=== PATIENT | male | born 1985 | race Caucasian/White ===

== ENCOUNTER 2021-09-18 09:28 | Observation (INO) | payer OTHER ==
[2021-09-18 09:45] VITALS: BMI 31.9
[2021-09-18] MEDS ORDERED: ACETAMINOPHEN 1000 MG/100 ML VIAL IVPB ONE (10:10)
[2021-09-18] MEDS ORDERED: ACETAMINOPHEN INJECTION 100 ML IVPB ONE (10:25)
[2021-09-18] MEDS ORDERED: oxyCODONE HCL 5 MG TABLET PO ONE ×3 (10:36→21:29)
[2021-09-18] MEDS ORDERED: oxyCODONE HCL 5 MG TABLET ONE ×3 (10:39→21:34)
[2021-09-18 11:03] LABS: BASO % 0.3 % (0-2.0); EOS % 0.4 % (0-4.5); HEMATOCRIT 42.1 % (35.4-49); HEMOGLOBIN 14.7 GM/dL (11.7-16.9); LYMPH % 19.1 % (8-40); MCH 30.6 pg (25.7-33.7); MEAN CELL VOLUME 87.4 fl (80-96); MEAN PLT VOLUME 8.5 fl (7.5-11.1); MONO % 9.2 % (3.8-10.2); PLATELET COUNT 226 10^3/uL (134-434); RBC 4.81 M/mm3 (4.00-5.60); RDW 13.8 % (11.9-15.9); WHITE BLOOD COUNT 6.8 K/mm3 (4.0-10.0)
[2021-09-18 11:21] LABS: CALCIUM 9.6 mg/dL (8.5-10.1)
[2021-09-18 11:22] LABS: ALBUMIN 4.1 g/dl (3.4-5.0); BLOOD UREA NITROGEN 3.9 mg/dL (7-18); MAGNESIUM 2.4 mg/dL (1.8-2.4)
[2021-09-18 11:25] LABS: CREATININE 0.8 mg/dL (0.55-1.3)
[2021-09-18 11:27] LABS: BILIRUBIN,TOTAL 0.9 mg/dL (0.2-1); TOT PROT 7.7 g/dl (6.4-8.2)
[2021-09-18 13:11] LABS: EPI CELLS >36 /uL (0-25.1); HYALINE CASTS 0 /uL (0-3.1); URINE APPEARANCE CLEAR; URINE BACTERIA 3432 /uL (0-1359); URINE BILIRUBIN NEGATIVE (NEGATIVE); URINE COLOR YELLOW; URINE GLUCOSE (UA) NEGATIVE (NEGATIVE); URINE KETONE TRACE (NEGATIVE); URINE LEUK ESTERASE 3+ (NEGATIVE); URINE NITRITE POSITIVE (NEGATIVE); URINE PROTEIN 2+ (NEGATIVE); URINE RBC 4 /uL (0-23.9); URINE WBC 98 /uL (0-25.8)
[2021-09-18] MEDS ORDERED: morphine CARPU-JECT 4 MG/1 ML DISP.SYRIN IVPUSH ONE (13:22)
[2021-09-18] MEDS ORDERED: morphine SULFATE 4 MG/ML VIAL ONE (14:20)
[2021-09-18] MEDS ORDERED: morphine SULFATE IMMEDIATE RELEASE 30 MG TAB PO ONE (21:30)
[2021-09-18] MEDS ORDERED: SULFAMETHOXAZOLE/TRIMETHOPRIM 800MG/160MG D.S. TABLET PO ONE (21:30)
[2021-09-18] MEDS ORDERED: SULFAMETHOXAZOLE/TRIMETHOPRIM 800MG/160MG D.S. TABLET ONE (21:34)
[2021-09-18] MEDS ORDERED: morphine SO4 SUSTAINED ACTING 30 MG TABLET.SA PO ONE (21:44)
[2021-09-19] MEDS ORDERED: APIXABAN 5 MG TABLET ONE ×2 (00:28→08:53)
[2021-09-19] MEDS ORDERED: GABAPENTIN 100 MG CAPSULE ONE ×4 (00:28→08:55)
[2021-09-19] MEDS: GABAPENTIN 300 MG CAPSULE PO SCH ×2 (00:45→09:19)
[2021-09-19] MEDS: APIXABAN 5 MG TABLET PO SCH ×2 (00:45→09:19)
[2021-09-19] MEDS ORDERED: oxyCODONE HCL 5 MG TABLET ONE (02:03)
[2021-09-19] MEDS ORDERED: BACLOFEN 10 MG TABLET (FP) ONE ×2 (02:03→08:54)
[2021-09-19] MEDS: BACLOFEN 10 MG TABLET (FP) PO SCH ×2 (02:08→09:19)
[2021-09-19] MEDS ORDERED: oxyCODONE HCL 5 MG TABLET PO ONE (02:15)
[2021-09-19] MEDS ORDERED: oxyCODONE HCL 5 MG TABLET PO PRN ×2 (06:47→11:22)
[2021-09-19] MEDS ORDERED: morphine SULFATE IMMEDIATE RELEASE 30 MG TAB PO PRN (06:48)
[2021-09-19] MEDS ORDERED: morphine SO4 SUSTAINED ACTING 30 MG TABLET.SA PO ONE (06:49)
[2021-09-19 08:00] LABS: BASO % 0.4 % (0-2.0); EOS % 1.5 % (0-4.5); HEMOGLOBIN 13.5 GM/dL (11.7-16.9); LYMPH % 21.7 % (8-40); MCH 30.6 pg (25.7-33.7); MCHC 34.7 g/dl (32.0-35.9); MEAN CELL VOLUME 88.3 fl (80-96); MEAN PLT VOLUME 8.3 fl (7.5-11.1); MONO % 10.9 % (3.8-10.2); NEUT % 65.5 % (42.8-82.8); PLATELET COUNT 207 10^3/uL (134-434); RBC 4.41 M/mm3 (4.00-5.60); RDW 14.1 % (11.9-15.9); WHITE BLOOD COUNT 6.8 K/mm3 (4.0-10.0)
[2021-09-19] MEDS ORDERED: SULFAMETHOXAZOLE/TRIMETHOPRIM 800MG/160MG D.S. TABLET ONE (08:53)
[2021-09-19] MEDS ORDERED: SULFAMETHOXAZOLE/TRIMETHOPRIM 800MG/160MG D.S. TABLET PO SCH (10:00)
[2021-09-19 10:59] VITALS: BP 100/76; PULSE 84; TEMP 99.5
[2021-09-19] MEDS ORDERED: ACETAMINOPHEN 1000 MG/100 ML VIAL IVPB PRN (11:12)
[2021-09-19] MEDS ORDERED: clonazePAM 0.5 MG TABLET PO ONE (11:20)
== END 2021-09-19 11:15 | disposition home or self-care (01) ==
LOC: JER 09:28 → JERBED 21:28
PROVIDERS: ADMIT Internal Medicine; ATTEND Family Medicine
PROC: 3E033NZ Introduction of Analgesics, Hypnotics, Sedatives into Peripheral Vein, Percutaneous Approach (ICD-10-PCS; principal; 2021-09-18)
DX: N30.00 Acute cystitis without hematuria (principal); T14.8XXS Other injury of unspecified body region, sequela; G82.20 Paraplegia, unspecified; R10.9 Unspecified abdominal pain; G89.29 Other chronic pain; I74.8 Embolism and thrombosis of other arteries; Z79.01 Long term (current) use of anticoagulants; W34.00XA Accidental discharge from unspecified firearms or gun, initial encounter; Y93.9 Activity, unspecified; Y92.9 Unspecified place or not applicable
CPT/HCPCS: 36415; 74177-TC; 80053; 81003; 82962; 83735; 85025; 87086; 87186; 93005; 93010; 96374; 96375; 99285-25; C9803; G0378; J0131; J0475; Q9967; U0003; U0005

== ENCOUNTER 2022-06-12 13:05 | Inpatient (IN) | payer OTHER ==
[2022-06-12 16:04] VITALS: BMI 30.2
[2022-06-12] MEDS ORDERED: ONDANSETRON *ODT* 4 MG TABLET SL PRN (16:36)
[2022-06-12] MEDS ORDERED: IBUPROFEN 400 MG TABLET (FP) PO PRN (16:36)
[2022-06-12] MEDS ORDERED: ACETAMINOPHEN 325 MG TABLET (FP) PO PRN ×2 (16:36)
[2022-06-12] MEDS ORDERED: BENZOCAINE/MENTHOL (CHLORASEPTIC ) LOZENGE MM PRN (16:36)
[2022-06-12] MEDS ORDERED: MAG HYDROX/AL HYDROX/SIMETH 30 ML UNIT-DOSE CUP PO PRN (16:36)
[2022-06-12] MEDS ORDERED: IBUPROFEN 600 MG TABLET (FP) PO PRN (16:36)
[2022-06-12] MEDS ORDERED: LOPERAMIDE HCL 2 MG CAPSULE PO PRN (16:36)
[2022-06-12] MEDS ORDERED: MAGNESIUM CITRATE 300 ML BOTTLE PO PRN (16:36)
[2022-06-12] MEDS ORDERED: NALOXONE HCL 0.4 MG/ML VIAL IM PRN (16:36)
[2022-06-12] MEDS ORDERED: MAGNESIUM HYDROX 2400MG/30ML ORAL SUSPENSION 30 ML CUP PO PRN (16:36)
[2022-06-12] MEDS ORDERED: BISMUTH SUBSALICYLATE 524 MG/30 ML PO PRN (16:36)
[2022-06-12] MEDS ORDERED: METHOCARBAMOL 500 MG TABLET PO PRN (16:36)
[2022-06-12] MEDS ORDERED: DICYCLOMINE HCL 10 MG CAPSULE PO PRN (16:36)
[2022-06-12] MEDS: hydrOXYzine PAMOATE 25 MG CAPSULE (FP) PO SCH ×2 (19:15→22:03)
[2022-06-12] MEDS ORDERED: THIAMINE HCL 100 MG TABLET (FP) PO SCH (22:00)
[2022-06-12] MEDS ORDERED: MELATONIN 5 MG TABLETS PO SCH (22:00)
[2022-06-12] MEDS ORDERED: methaDONE HCL 10 MG TABLET PO ONE (23:49)
[2022-06-12] MEDS ORDERED: hydrOXYzine PAMOATE 25 MG CAPSULE (FP) PO PRN (23:51)
[2022-06-13 03:13] VITALS: BP 117/68; PULSE 58; TEMP 97.7
[2022-06-13] MEDS ORDERED: PRENATAL VITAMINS W/ FOLIC ACID TABLET (FP) PO SCH (10:00)
== END 2022-06-13 02:26 | disposition short-term general hospital (02) | DRG 773 ==
LOC: YASAS 13:05 → Y6N 17:43
PROVIDERS: ADMIT Allergy & Immunology; ATTEND Surgery
PROC: HZ2ZZZZ Detoxification Services for Substance Abuse Treatment (ICD-10-PCS; principal; 2022-06-12)
DX: F11.23 Opioid dependence with withdrawal (principal); F41.9 Anxiety disorder, unspecified; G82.20 Paraplegia, unspecified; T14.8XXS Other injury of unspecified body region, sequela; W34.00XS Accidental discharge from unspecified firearms or gun, sequela; M54.50 Low back pain, unspecified; G89.29 Other chronic pain; Z86.718 Personal history of other venous thrombosis and embolism; Z79.01 Long term (current) use of anticoagulants; Z91.14 Patient's other noncompliance with medication regimen; Z28.310 Unvaccinated for COVID-19
CPT/HCPCS: 93005; 93010; C9803-CS; U0003; U0005

== ENCOUNTER 2022-06-13 02:42 | Observation (INO) | payer OTHER ==
[2022-06-13 08:41] LABS: BASO % 0.3 % (0-2.0); EOS % 3.8 % (0-4.5); HEMATOCRIT 37.1 % (35.4-49); LYMPH % 21.5 % (8-40); MCH 30.9 pg (25.7-33.7); MCHC 35.1 g/dl (32.0-35.9); MEAN CELL VOLUME 87.9 fl (80-96); MEAN PLT VOLUME 8.1 fl (7.5-11.1); NEUT % 65.4 % (42.8-82.8); PLATELET COUNT 231 10^3/uL (134-434); RBC 4.22 M/mm3 (4.00-5.60); RDW 13.9 % (11.9-15.9); WHITE BLOOD COUNT 5.2 K/mm3 (4.0-10.0)
[2022-06-13 09:05] LABS: ALBUMIN 3.7 g/dl (3.4-5.0); CALCIUM 8.9 mg/dL (8.5-10.1)
[2022-06-13 09:06] LABS: BLOOD UREA NITROGEN 6.5 mg/dL (7-18)
[2022-06-13 09:08] LABS: CREATININE 0.6 mg/dL (0.55-1.3)
[2022-06-13 09:11] LABS: BILIRUBIN,TOTAL 0.6 mg/dL (0.2-1); TOT PROT 6.9 g/dl (6.4-8.2)
[2022-06-13] MEDS ORDERED: cloNIDine HCL 0.1 MG TABLET PO PRN (10:23)
[2022-06-13] MEDS ORDERED: APIXABAN 5 MG TABLET ONE (10:35)
[2022-06-13] MEDS ORDERED: FOLIC ACID 1 MG TABLET (FP) ONE (10:35)
[2022-06-13] MEDS ORDERED: methaDONE HCL 10 MG TABLET ONE (10:35)
[2022-06-13] MEDS ORDERED: BACLOFEN 10 MG TABLET (FP) ONE (10:35)
[2022-06-13] MEDS: FOLIC ACID 1 MG TABLET (FP) PO SCH (10:40)
[2022-06-13] MEDS: methaDONE HCL 10 MG TABLET (FOR DETOX USE ONLY) PO ONE ×2 (10:40→15:54)
[2022-06-13] MEDS: APIXABAN 5 MG TABLET PO SCH ×2 (10:40→21:25)
[2022-06-13] MEDS ORDERED: MAG HYDROX/AL HYDROX/SIMETH 30 ML UNIT-DOSE CUP PO PRN (10:42)
[2022-06-13] MEDS ORDERED: methaDONE HCL 10 MG TABLET PO ONE (10:45)
[2022-06-13] MEDS ORDERED: BACLOFEN 10 MG TABLET (FP) PO PRN (10:52)
[2022-06-13] MEDS ORDERED: BACLOFEN 10 MG TABLET (FP) PO SCH (11:00)
[2022-06-13] MEDS ORDERED: POLYETHYLENE GLYCOL 3350 119 GM BTL PO SCH (11:00)
[2022-06-13] MEDS: GABAPENTIN 300 MG CAPSULE PO SCH ×2 (13:12→21:25)
[2022-06-13] MEDS: POLYETHYLENE GLYCOL (HEALTHYLAX) 3350 17 GM PACKET PO SCH ×2 (13:12→21:24)
[2022-06-13] MEDS: DOCUSATE SODIUM 100 MG CAPSULE (FP) PO SCH ×2 (13:12→21:25)
[2022-06-13] MEDS ORDERED: GABAPENTIN 300 MG CAPSULE ONE (13:13)
[2022-06-13] MEDS ORDERED: POLYETHYLENE GLYCOL (HEALTHYLAX) 3350 17 GM PACKET ONE (13:18)
[2022-06-13] MEDS ORDERED: DOCUSATE SODIUM 100 MG CAPSULE (FP) PO ONE (13:19)
[2022-06-13 16:24] VITALS: BMI 30.6
[2022-06-13] MEDS ORDERED: FAMOTIDINE 20 MG/50 ML IVPB 20 MG/50 ML MG IVPB SCH (22:00)
[2022-06-14] MEDS: GABAPENTIN 300 MG CAPSULE PO SCH ×3 (05:29→22:28)
[2022-06-14 09:09] LABS: HEMATOCRIT 39.1 % (35.4-49); HEMOGLOBIN 13.7 GM/dL (11.7-16.9); MCH 30.8 pg (25.7-33.7); MCHC 35.1 g/dl (32.0-35.9); MEAN CELL VOLUME 87.9 fl (80-96); MEAN PLT VOLUME 8.1 fl (7.5-11.1); PLATELET COUNT 214 10^3/uL (134-434); RBC 4.45 M/mm3 (4.00-5.60); RDW 13.8 % (11.9-15.9); WHITE BLOOD COUNT 5.6 K/mm3 (4.0-10.0)
[2022-06-14] MEDS ORDERED: methaDONE HCL 10 MG TABLET ONE (09:13)
[2022-06-14] MEDS: DOCUSATE SODIUM 100 MG CAPSULE (FP) PO SCH ×2 (09:16→22:28)
[2022-06-14] MEDS: FOLIC ACID 1 MG TABLET (FP) PO SCH (09:16)
[2022-06-14] MEDS: POLYETHYLENE GLYCOL (HEALTHYLAX) 3350 17 GM PACKET PO SCH ×2 (09:16→22:28)
[2022-06-14] MEDS: APIXABAN 5 MG TABLET PO SCH ×2 (09:16→22:28)
[2022-06-14 09:32] LABS: CALCIUM 9.3 mg/dL (8.5-10.1)
[2022-06-14 09:36] LABS: CREATININE 0.7 mg/dL (0.55-1.3)
[2022-06-15] MEDS: GABAPENTIN 300 MG CAPSULE PO SCH ×3 (05:08→21:54)
[2022-06-15] MEDS: FOLIC ACID 1 MG TABLET (FP) PO SCH (09:24)
[2022-06-15] MEDS: POLYETHYLENE GLYCOL (HEALTHYLAX) 3350 17 GM PACKET PO SCH ×2 (09:24→21:54)
[2022-06-15] MEDS: APIXABAN 5 MG TABLET PO SCH ×2 (09:24→21:54)
[2022-06-15] MEDS: DOCUSATE SODIUM 100 MG CAPSULE (FP) PO SCH ×2 (09:24→21:54)
[2022-06-15] MEDS ORDERED: methaDONE HCL 10 MG TABLET PO ONE (10:00)
[2022-06-16] MEDS: OXYBUTYNIN CHLORIDE 5 MG TABLET PO SCH ×3 (01:37→21:58)
[2022-06-16] MEDS: GABAPENTIN 300 MG CAPSULE PO SCH ×3 (05:55→21:58)
[2022-06-16] MEDS: FOLIC ACID 1 MG TABLET (FP) PO SCH (09:07)
[2022-06-16] MEDS: POLYETHYLENE GLYCOL (HEALTHYLAX) 3350 17 GM PACKET PO SCH ×2 (09:07→21:58)
[2022-06-16] MEDS: DOCUSATE SODIUM 100 MG CAPSULE (FP) PO SCH ×2 (09:07→21:58)
[2022-06-16] MEDS: APIXABAN 5 MG TABLET PO SCH ×2 (09:07→21:58)
[2022-06-16] MEDS ORDERED: methaDONE HCL 10 MG TABLET ONE (09:10)
[2022-06-17] MEDS: GABAPENTIN 300 MG CAPSULE PO SCH ×2 (05:41→13:05)
[2022-06-17 08:59] LABS: HEMATOCRIT 45.1 % (35.4-49); HEMOGLOBIN 15.3 GM/dL (11.7-16.9); MCHC 33.9 g/dl (32.0-35.9); MEAN CELL VOLUME 88.4 fl (80-96); MEAN PLT VOLUME 8.4 fl (7.5-11.1); PLATELET COUNT 245 10^3/uL (134-434); RDW 13.8 % (11.9-15.9); WHITE BLOOD COUNT 6.2 K/mm3 (4.0-10.0)
[2022-06-17] MEDS: APIXABAN 5 MG TABLET PO SCH (09:15)
[2022-06-17] MEDS: FOLIC ACID 1 MG TABLET (FP) PO SCH (09:15)
[2022-06-17] MEDS: OXYBUTYNIN CHLORIDE 5 MG TABLET PO SCH (09:15)
[2022-06-17] MEDS: POLYETHYLENE GLYCOL (HEALTHYLAX) 3350 17 GM PACKET PO SCH (09:16)
[2022-06-17] MEDS: DOCUSATE SODIUM 100 MG CAPSULE (FP) PO SCH (09:16)
[2022-06-17] MEDS ORDERED: methaDONE HCL 10 MG TABLET PO ONE (10:00)
[2022-06-17 10:22] LABS: CALCIUM 9.5 mg/dL (8.5-10.1)
[2022-06-17 10:23] LABS: ALBUMIN 3.9 g/dl (3.4-5.0); BLOOD UREA NITROGEN 8.8 mg/dL (7-18); MAGNESIUM 2.7 mg/dL (1.8-2.4)
[2022-06-17 10:26] LABS: CREATININE 0.7 mg/dL (0.55-1.3)
[2022-06-17 10:28] LABS: BILIRUBIN,TOTAL 0.9 mg/dL (0.2-1); TOT PROT 7.2 g/dl (6.4-8.2)
[2022-06-17 14:47] VITALS: BP 118/69; PULSE 83; TEMP 99
== END 2022-06-17 16:00 | disposition left against medical advice (07) ==
LOC: JER 02:42 → JERBED 10:12 → J7W 15:52
PROVIDERS: ADMIT Internal Medicine; ATTEND Internal Medicine
DX: F11.90 Opioid use, unspecified, uncomplicated (principal); D68.9 Coagulation defect, unspecified; M54.50 Low back pain, unspecified; S24.102S Unspecified injury at T2-T6 level of thoracic spinal cord, sequela; M86.9 Osteomyelitis, unspecified; G62.9 Polyneuropathy, unspecified; Z79.01 Long term (current) use of anticoagulants; G89.29 Other chronic pain; Z96.0 Presence of urogenital implants; K59.00 Constipation, unspecified; F41.9 Anxiety disorder, unspecified; R45.1 Restlessness and agitation; M25.50 Pain in unspecified joint; Z87.440 Personal history of urinary (tract) infections; E66.8 Other obesity; Z68.30 Body mass index [BMI] 30.0-30.9, adult; X58.XXXA Exposure to other specified factors, initial encounter; Y93.89 Activity, other specified; Y92.89 Other specified places as the place of occurrence of the external cause
CPT/HCPCS: 36415; 80048; 80053; 83735; 85025; 85027; 93005; 93010; 99285-25; C9803-CS; G0378; J0475; U0003; U0005

== ENCOUNTER 2023-09-02 11:56 | Inpatient (IN) | payer OTHER ==
[2023-09-02 20:49] LABS: BASO % 0.2 % (0-2.0); EOS % 0.4 % (0-4.5); LYMPH % 6.8 % (8-40); MCH 24.3 pg (25.7-33.7); MCHC 31.9 g/dl (32.0-35.9); MEAN CELL VOLUME 76.1 fl (80-96); MEAN PLT VOLUME 7.4 fl (7.5-11.1); NEUT % 86.6 % (42.8-82.8); PLATELET COUNT 406 10^3/uL (134-434); RBC 3.29 M/mm3 (4.00-5.60); RDW 20.8 % (11.9-15.9); WHITE BLOOD COUNT 12.9 K/mm3 (4.0-10.0)
[2023-09-02 20:56] LABS: INR 1.36 (0.83-1.09); PROTHROMBIN TIME (PATIENT) 15.7 SEC (9.7-13.0)
[2023-09-02 20:59] LABS: ACTIVATED PTT 33.7 SECONDS (25.2-36.5)
[2023-09-02 21:07] LABS: ANISOCYTOSIS 2+; MACROCYTOSIS 2+; ROULEAU 1+
[2023-09-02 21:27] LABS: POTASSIUM 4.2 mmol/L (3.5-5.1)
[2023-09-02 21:28] LABS: CALCIUM 8.4 mg/dL (8.5-10.1)
[2023-09-02 21:30] LABS: ALBUMIN 1.9 g/dl (3.4-5.0); BLOOD UREA NITROGEN 16.2 mg/dL (7-18)
[2023-09-02 21:32] LABS: CREATININE 0.9 mg/dL (0.55-1.3)
[2023-09-02 21:35] LABS: BILIRUBIN,TOTAL 0.4 mg/dL (0.2-1)
[2023-09-02] MEDS ORDERED: ACETAMINOPHEN 325 MG TABLET (FP) PO ONE (23:44)
[2023-09-03 00:32] VITALS: BMI 22.0
[2023-09-03] MEDS ORDERED: ACETAMINOPHEN 325 MG TABLET (FP) ONE (03:21)
[2023-09-03] MEDS ORDERED: ACETAMINOPHEN 325 MG TABLET (FP) PO PRN (03:39)
[2023-09-03] MEDS ORDERED: BUPRENORPHINE/NALOXONE 12 MG-3 MG SL FILM PACKET SL SCH (10:00)
[2023-09-03] MEDS ORDERED: ENOXAPARIN NA (PORCINE) 40 MG/0.4 ML DISP.SYRIN SQ SCH (10:00)
[2023-09-03] MEDS: BUPRENORPHINE/NALOXONE 1 EACH, BUPRENORPHINE/NALOXONE 2 EACH SL SCH (10:28)
[2023-09-03 10:46] LABS: HEMATOCRIT 25.2 % (35.4-49); HEMOGLOBIN 8.3 GM/dL (11.7-16.9); MCH 24.7 pg (25.7-33.7); MEAN CELL VOLUME 74.7 fl (80-96); MEAN PLT VOLUME 7.8 fl (7.5-11.1); PLATELET COUNT 487 10^3/uL (134-434); RBC 3.37 M/mm3 (4.00-5.60); RDW 21.3 % (11.9-15.9); WHITE BLOOD COUNT 12.8 K/mm3 (4.0-10.0)
[2023-09-03 11:06] LABS: POTASSIUM 4.1 mmol/L (3.5-5.1)
[2023-09-03 11:10] LABS: ALBUMIN 1.9 g/dl (3.4-5.0); CALCIUM 8.7 mg/dL (8.5-10.1); MAGNESIUM 2.4 mg/dL (1.8-2.4)
[2023-09-03 11:11] LABS: BLOOD UREA NITROGEN 11.9 mg/dL (7-18)
[2023-09-03 11:13] LABS: CREATININE 0.7 mg/dL (0.55-1.3)
[2023-09-03 11:15] LABS: BILIRUBIN,TOTAL 0.3 mg/dL (0.2-1); TOT PROT 7.1 g/dl (6.4-8.2)
[2023-09-03 11:16] LABS: PHOSPHOROUS 3.2 mg/dL (2.5-4.9)
[2023-09-03 11:21] LABS: ANISOCYTOSIS 2+; MACROCYTOSIS 1+
[2023-09-03 18:29] LABS: RETICULOCYTES 1.38 % (0.5-1.5)
[2023-09-03] MEDS: AMINO ACIDS/PROTEIN HYDROLYS 30 ML LIQUID.PKT PO SCH (19:09)
[2023-09-04] MEDS: AMINO ACIDS/PROTEIN HYDROLYS 30 ML LIQUID.PKT PO SCH ×3 (09:23→17:37)
[2023-09-04] MEDS: BUPRENORPHINE/NALOXONE 1 EACH, BUPRENORPHINE/NALOXONE 2 EACH SL SCH ×2 (09:24→09:47)
[2023-09-04] MEDS: MULTIVITAMINS THER W-MINERALS COMBO TABLET (FP) PO SCH (09:25)
[2023-09-04] MEDS: ZINC SULFATE 220 MG CAPSULE (FP) PO SCH (09:25)
[2023-09-04 11:09] LABS: HEMATOCRIT 21.4 % (35.4-49); MCH 24.5 pg (25.7-33.7); MCHC 31.9 g/dl (32.0-35.9); MEAN CELL VOLUME 76.6 fl (80-96); MEAN PLT VOLUME 7.7 fl (7.5-11.1); PLATELET COUNT 399 10^3/uL (134-434); RBC 2.79 M/mm3 (4.00-5.60); RDW 21.2 % (11.9-15.9); WHITE BLOOD COUNT 9.8 K/mm3 (4.0-10.0)
[2023-09-04 11:33] LABS: HEMOGLOBIN 6.8 GM/dL (11.7-16.9)
[2023-09-04 11:44] LABS: POTASSIUM 4.1 mmol/L (3.5-5.1)
[2023-09-04 12:14] LABS: BLOOD UREA NITROGEN 9.5 mg/dL (7-18)
[2023-09-04 12:17] LABS: CREATININE 0.7 mg/dL (0.55-1.3); PHOSPHOROUS 4.1 mg/dL (2.5-4.9)
[2023-09-04 12:18] LABS: ALBUMIN 1.7 g/dl (3.4-5.0)
[2023-09-04 12:19] LABS: BILIRUBIN,TOTAL 0.4 mg/dL (0.2-1); TOT PROT 6.3 g/dl (6.4-8.2)
[2023-09-04 12:22] LABS: CALCIUM 8.3 mg/dL (8.5-10.1); MAGNESIUM 2.3 mg/dL (1.8-2.4)
[2023-09-04] MEDS: COLLAGENASE CLOSTRIDIUM HIST. 30 GRAMS TUBE TP SCH (13:56)
[2023-09-04 14:40] LABS: BASO % 0.2 % (0-2.0); EOS % 0.1 % (0-4.5); HEMATOCRIT 21.3 % (35.4-49); LYMPH % 4.6 % (8-40); MCH 23.9 pg (25.7-33.7); MCHC 31.3 g/dl (32.0-35.9); MEAN CELL VOLUME 76.1 fl (80-96); MEAN PLT VOLUME 7.6 fl (7.5-11.1); MONO % 7.6 % (3.8-10.2); NEUT % 87.5 % (42.8-82.8); PLATELET COUNT 371 10^3/uL (134-434); RDW 20.8 % (11.9-15.9); WHITE BLOOD COUNT 9.1 K/mm3 (4.0-10.0)
[2023-09-04 14:47] LABS: HEMOGLOBIN 6.7 GM/dL (11.7-16.9)
[2023-09-04] MEDS: VANCOMYCIN ORAL SOLUTION 125 MG/2.5 ML PO SCH ×2 (16:54→18:08)
[2023-09-04] MEDS: SODIUM CHLORIDE 1,000 ML IV SCH ×2 (16:55→16:56)
[2023-09-05] MEDS: VANCOMYCIN ORAL SOLUTION 125 MG/2.5 ML PO SCH ×4 (01:16→17:21)
[2023-09-05 09:24] LABS: BASO % 0.2 % (0-2.0); EOS % 0.3 % (0-4.5); HEMATOCRIT 22.8 % (35.4-49); HEMOGLOBIN 7.5 GM/dL (11.7-16.9); LYMPH % 5.5 % (8-40); MCH 25.2 pg (25.7-33.7); MCHC 32.8 g/dl (32.0-35.9); MEAN PLT VOLUME 8.1 fl (7.5-11.1); MONO % 10.7 % (3.8-10.2); NEUT % 83.3 % (42.8-82.8); PLATELET COUNT 376 10^3/uL (134-434); RBC 2.96 M/mm3 (4.00-5.60); RDW 21.3 % (11.9-15.9); WHITE BLOOD COUNT 11.7 K/mm3 (4.0-10.0)
[2023-09-05 09:42] LABS: POTASSIUM 3.4 mmol/L (3.5-5.1)
[2023-09-05 09:50] LABS: ALBUMIN 1.6 g/dl (3.4-5.0); BLOOD UREA NITROGEN 9.7 mg/dL (7-18); CREATININE 0.5 mg/dL (0.55-1.3)
[2023-09-05 09:51] LABS: BILIRUBIN,TOTAL 0.6 mg/dL (0.2-1)
[2023-09-05 09:52] LABS: CALCIUM 7.7 mg/dL (8.5-10.1)
[2023-09-05 09:53] LABS: MAGNESIUM 1.9 mg/dL (1.8-2.4)
[2023-09-05] MEDS: AMINO ACIDS/PROTEIN HYDROLYS 30 ML LIQUID.PKT PO SCH ×3 (10:08→17:17)
[2023-09-05] MEDS: ZINC SULFATE 220 MG CAPSULE (FP) PO SCH (10:09)
[2023-09-05] MEDS: MULTIVITAMINS THER W-MINERALS COMBO TABLET (FP) PO SCH (10:09)
[2023-09-05] MEDS: ENOXAPARIN NA (PORCINE) 40 MG/0.4 ML DISP.SYRIN SQ SCH (10:09)
[2023-09-05] MEDS: BUPRENORPHINE/NALOXONE 1 EACH, BUPRENORPHINE/NALOXONE 2 EACH SL SCH ×2 (10:10→19:34)
[2023-09-05] MEDS ORDERED: MULTIVIT-MINERALS ORAL LIQUID PO SCH (11:00)
[2023-09-05] MEDS: COLLAGENASE CLOSTRIDIUM HIST. 30 GRAMS TUBE TP SCH (13:07)
[2023-09-06] MEDS: VANCOMYCIN ORAL SOLUTION 125 MG/2.5 ML PO SCH ×5 (00:30→23:24)
[2023-09-06] MEDS: AMINO ACIDS/PROTEIN HYDROLYS 30 ML LIQUID.PKT PO SCH ×3 (09:13→17:25)
[2023-09-06] MEDS: MULTIVIT-MINERALS ORAL LIQUID PO SCH (09:13)
[2023-09-06] MEDS: BUPRENORPHINE/NALOXONE 1 EACH, BUPRENORPHINE/NALOXONE 2 EACH SL SCH (09:14)
[2023-09-06] MEDS: ENOXAPARIN NA (PORCINE) 40 MG/0.4 ML DISP.SYRIN SQ SCH (09:14)
[2023-09-06 09:21] LABS: BASO % 0.3 % (0-2.0); EOS % 0.5 % (0-4.5); HEMATOCRIT 24.4 % (35.4-49); HEMOGLOBIN 7.8 GM/dL (11.7-16.9); LYMPH % 6.1 % (8-40); MCH 25.1 pg (25.7-33.7); MCHC 32.1 g/dl (32.0-35.9); MEAN CELL VOLUME 78.2 fl (80-96); MEAN PLT VOLUME 8.1 fl (7.5-11.1); MONO % 10.1 % (3.8-10.2); PLATELET COUNT 393 10^3/uL (134-434); RBC 3.12 M/mm3 (4.00-5.60); RDW 22.1 % (11.9-15.9); WHITE BLOOD COUNT 9.8 K/mm3 (4.0-10.0)
[2023-09-06 09:37] LABS: POTASSIUM 3.2 mmol/L (3.5-5.1)
[2023-09-06 09:39] LABS: ALBUMIN 1.6 g/dl (3.4-5.0); BLOOD UREA NITROGEN 11.6 mg/dL (7-18); MAGNESIUM 1.9 mg/dL (1.8-2.4)
[2023-09-06 09:42] LABS: CREATININE 0.5 mg/dL (0.55-1.3)
[2023-09-06 09:44] LABS: BILIRUBIN,TOTAL 0.4 mg/dL (0.2-1); TOT PROT 6.1 g/dl (6.4-8.2)
[2023-09-06 09:54] LABS: ANISOCYTOSIS 1+; MACROCYTOSIS 1+
[2023-09-06] MEDS ORDERED: POTASSIUM CHLORIDE ORAL LIQUID 20 MEQ/15 ML PO SCH (11:00)
[2023-09-06] MEDS ORDERED: ALBUTEROL SO4 2.5/IPRATROPIUM 0.5 INH SOL 3 ML VIAL.NEB. NEB PRN (12:18)
[2023-09-06] MEDS ORDERED: SODIUM CHLORIDE FOR INHALATION 3 ML VIAL.NEB IH PRN (12:18)
[2023-09-06] MEDS ORDERED: MAG HYDROX/AL HYDROX/SIMETH 30 ML UNIT-DOSE CUP PO PRN (14:00)
[2023-09-06] MEDS: COLLAGENASE CLOSTRIDIUM HIST. 30 GRAMS TUBE TP SCH (15:27)
[2023-09-06] MEDS: POTASSIUM CHLORIDE TABS 20 MEQ TABLET.ER (FP) PO SCH ×2 (15:27→22:39)
[2023-09-06] MEDS: MAG HYDROX/AL HYDROX/SIMETH 30 ML UNIT-DOSE CUP PO SCH ×2 (15:28→17:26)
[2023-09-07] MEDS: MAG HYDROX/AL HYDROX/SIMETH 30 ML UNIT-DOSE CUP PO SCH ×4 (02:36→18:42)
[2023-09-07] MEDS: VANCOMYCIN ORAL SOLUTION 125 MG/2.5 ML PO SCH ×3 (07:19→18:42)
[2023-09-07 09:20] LABS: BASO % 0.3 % (0-2.0); EOS % 0.9 % (0-4.5); HEMATOCRIT 24.4 % (35.4-49); HEMOGLOBIN 7.8 GM/dL (11.7-16.9); LYMPH % 6.2 % (8-40); MCH 25.1 pg (25.7-33.7); MCHC 31.8 g/dl (32.0-35.9); MEAN CELL VOLUME 78.9 fl (80-96); MONO % 11.3 % (3.8-10.2); NEUT % 81.3 % (42.8-82.8); PLATELET COUNT 409 10^3/uL (134-434); RBC 3.09 M/mm3 (4.00-5.60); RDW 21.9 % (11.9-15.9); WHITE BLOOD COUNT 9.2 K/mm3 (4.0-10.0)
[2023-09-07] MEDS: AMINO ACIDS/PROTEIN HYDROLYS 30 ML LIQUID.PKT PO SCH ×3 (09:51→18:42)
[2023-09-07] MEDS: BUPRENORPHINE/NALOXONE 1 EACH, BUPRENORPHINE/NALOXONE 2 EACH SL SCH (09:52)
[2023-09-07] MEDS: MULTIVIT-MINERALS ORAL LIQUID PO SCH (09:54)
[2023-09-07 10:07] LABS: CALCIUM 8.8 mg/dL (8.5-10.1)
[2023-09-07 10:08] LABS: ALBUMIN 1.6 g/dl (3.4-5.0)
[2023-09-07 10:11] LABS: BLOOD UREA NITROGEN 10.6 mg/dL (7-18); CREATININE 0.5 mg/dL (0.55-1.3)
[2023-09-07 10:12] LABS: BILIRUBIN,TOTAL 0.5 mg/dL (0.2-1); TOT PROT 6.2 g/dl (6.4-8.2)
[2023-09-07] MEDS: COLLAGENASE CLOSTRIDIUM HIST. 30 GRAMS TUBE TP SCH (12:09)
[2023-09-08] MEDS: MAG HYDROX/AL HYDROX/SIMETH 30 ML UNIT-DOSE CUP PO SCH ×4 (00:26→17:23)
[2023-09-08] MEDS: VANCOMYCIN ORAL SOLUTION 125 MG/2.5 ML PO SCH ×4 (00:28→17:23)
[2023-09-08] MEDS: AMINO ACIDS/PROTEIN HYDROLYS 30 ML LIQUID.PKT PO SCH ×3 (08:25→17:24)
[2023-09-08 10:25] LABS: BASO % 0.4 % (0-2.0); EOS % 0.1 % (0-4.5); HEMATOCRIT 25.7 % (35.4-49); LYMPH % 5.4 % (8-40); MCH 24.5 pg (25.7-33.7); MEAN CELL VOLUME 79.1 fl (80-96); MEAN PLT VOLUME 8.2 fl (7.5-11.1); MONO % 8.9 % (3.8-10.2); NEUT % 85.2 % (42.8-82.8); PLATELET COUNT 434 10^3/uL (134-434); RBC 3.25 M/mm3 (4.00-5.60); RDW 21.9 % (11.9-15.9); WHITE BLOOD COUNT 12.6 K/mm3 (4.0-10.0)
[2023-09-08 10:41] LABS: POTASSIUM 4.3 mmol/L (3.5-5.1)
[2023-09-08 10:45] LABS: BLOOD UREA NITROGEN 13.5 mg/dL (7-18); CALCIUM 8.8 mg/dL (8.5-10.1)
[2023-09-08] MEDS: COLLAGENASE CLOSTRIDIUM HIST. 30 GRAMS TUBE TP SCH (10:45)
[2023-09-08] MEDS: MULTIVIT-MINERALS ORAL LIQUID PO SCH (10:45)
[2023-09-08] MEDS: BUPRENORPHINE/NALOXONE 1 EACH, BUPRENORPHINE/NALOXONE 2 EACH SL SCH (10:46)
[2023-09-08 10:47] LABS: ALBUMIN 1.7 g/dl (3.4-5.0); MAGNESIUM 2.2 mg/dL (1.8-2.4)
[2023-09-08 10:49] LABS: CREATININE 0.6 mg/dL (0.55-1.3)
[2023-09-08 10:51] LABS: BILIRUBIN,TOTAL 0.6 mg/dL (0.2-1); TOT PROT 6.5 g/dl (6.4-8.2)
[2023-09-09] MEDS: VANCOMYCIN ORAL SOLUTION 125 MG/2.5 ML PO SCH ×4 (00:55→17:32)
[2023-09-09] MEDS: MAG HYDROX/AL HYDROX/SIMETH 30 ML UNIT-DOSE CUP PO SCH ×4 (00:56→18:00)
[2023-09-09] MEDS: AMINO ACIDS/PROTEIN HYDROLYS 30 ML LIQUID.PKT PO SCH ×3 (09:46→17:32)
[2023-09-09] MEDS: MULTIVIT-MINERALS ORAL LIQUID PO SCH (09:46)
[2023-09-09] MEDS: BUPRENORPHINE/NALOXONE 1 EACH, BUPRENORPHINE/NALOXONE 2 EACH SL SCH (10:04)
[2023-09-09 10:55] LABS: BASO % 0.3 % (0-2.0); EOS % 0.3 % (0-4.5); HEMATOCRIT 25.3 % (35.4-49); HEMOGLOBIN 7.9 GM/dL (11.7-16.9); LYMPH % 4.1 % (8-40); MCH 24.6 pg (25.7-33.7); MCHC 31.4 g/dl (32.0-35.9); MEAN CELL VOLUME 78.2 fl (80-96); MEAN PLT VOLUME 8.2 fl (7.5-11.1); MONO % 7.8 % (3.8-10.2); NEUT % 87.5 % (42.8-82.8); PLATELET COUNT 359 10^3/uL (134-434); RBC 3.23 M/mm3 (4.00-5.60); RDW 22.3 % (11.9-15.9); WHITE BLOOD COUNT 11.4 K/mm3 (4.0-10.0)
[2023-09-09 11:15] LABS: POTASSIUM 4.2 mmol/L (3.5-5.1)
[2023-09-09 11:19] LABS: CALCIUM 8.7 mg/dL (8.5-10.1)
[2023-09-09 11:20] LABS: ALBUMIN 1.7 g/dl (3.4-5.0); BLOOD UREA NITROGEN 17.3 mg/dL (7-18); MAGNESIUM 2.3 mg/dL (1.8-2.4)
[2023-09-09 11:22] LABS: CREATININE 0.5 mg/dL (0.55-1.3)
[2023-09-09 11:24] LABS: BILIRUBIN,TOTAL 0.4 mg/dL (0.2-1); TOT PROT 6.6 g/dl (6.4-8.2)
[2023-09-09 12:10] LABS: ANISOCYTOSIS 2+; MACROCYTOSIS 1+
[2023-09-09] MEDS: COLLAGENASE CLOSTRIDIUM HIST. 30 GRAMS TUBE TP SCH (17:32)
[2023-09-09] MEDS: SODIUM CHLORIDE 1,000 ML IV SCH (18:00)
[2023-09-10] MEDS: VANCOMYCIN ORAL SOLUTION 125 MG/2.5 ML PO SCH ×3 (01:30→12:24)
[2023-09-10] MEDS: MAG HYDROX/AL HYDROX/SIMETH 30 ML UNIT-DOSE CUP PO SCH ×6 (01:30→23:28)
[2023-09-10 10:44] LABS: BASO % 0.3 % (0-2.0); EOS % 0.2 % (0-4.5); HEMATOCRIT 26.4 % (35.4-49); HEMOGLOBIN 8.2 GM/dL (11.7-16.9); LYMPH % 5.5 % (8-40); MCH 24.4 pg (25.7-33.7); MCHC 30.9 g/dl (32.0-35.9); MONO % 8.2 % (3.8-10.2); NEUT % 85.8 % (42.8-82.8); PLATELET COUNT 325 10^3/uL (134-434); RBC 3.34 M/mm3 (4.00-5.60); RDW 22.4 % (11.9-15.9); WHITE BLOOD COUNT 12.6 K/mm3 (4.0-10.0)
[2023-09-10] MEDS: MULTIVIT-MINERALS ORAL LIQUID PO SCH (10:45)
[2023-09-10] MEDS: AMINO ACIDS/PROTEIN HYDROLYS 30 ML LIQUID.PKT PO SCH ×3 (10:45→17:04)
[2023-09-10] MEDS: PANTOPRAZOLE 40 MG TABLET PO SCH (10:46)
[2023-09-10] MEDS: BUPRENORPHINE/NALOXONE 1 EACH, BUPRENORPHINE/NALOXONE 2 EACH SL SCH (10:55)
[2023-09-10 11:19] LABS: POTASSIUM 3.7 mmol/L (3.5-5.1)
[2023-09-10] MEDS ORDERED: ACETAMINOPHEN 325 MG TABLET (FP) PO PRN (11:27)
[2023-09-10] MEDS: SODIUM CHLORIDE 1,000 ML IV SCH ×3 (12:09→16:50)
[2023-09-10 12:13] LABS: ALBUMIN 1.7 g/dl (3.4-5.0); BLOOD UREA NITROGEN 15.7 mg/dL (7-18); CALCIUM 8.6 mg/dL (8.5-10.1)
[2023-09-10 12:15] LABS: MAGNESIUM 2.1 mg/dL (1.8-2.4)
[2023-09-10 12:17] LABS: CREATININE 0.6 mg/dL (0.55-1.3)
[2023-09-10 12:19] LABS: BILIRUBIN,TOTAL 0.4 mg/dL (0.2-1); TOT PROT 6.5 g/dl (6.4-8.2)
[2023-09-10] MEDS: DEXAMETHASONE 4 MG TABLET (FP) PO SCH (12:31)
[2023-09-10] MEDS: COLLAGENASE CLOSTRIDIUM HIST. 30 GRAMS TUBE TP SCH (14:19)
[2023-09-10] MEDS: AZTREONAM 1 GM in DEXTROSE 5%-WATER - 50 ML IVPB SCH ×2 (14:19→17:45)
[2023-09-10] MEDS: POVIDONE-IODINE 10% SOLN 118 ML BOTTLE TP SCH (17:05)
[2023-09-10] MEDS: VANCOMYCIN 250 MG/5 ML ORAL SOLUTION PO SCH ×2 (17:45→23:26)
[2023-09-10] MEDS ORDERED: VANCOMYCIN ORAL SOLUTION 125 MG/2.5 ML PO SCH (18:00)
[2023-09-11] MEDS: AZTREONAM 1 GM in DEXTROSE 5%-WATER - 50 ML IVPB SCH ×3 (02:42→11:15)
[2023-09-11] MEDS: MAG HYDROX/AL HYDROX/SIMETH 30 ML UNIT-DOSE CUP PO SCH ×3 (06:05→18:12)
[2023-09-11] MEDS: VANCOMYCIN 250 MG/5 ML ORAL SOLUTION PO SCH ×3 (06:05→18:18)
[2023-09-11 09:32] LABS: HEMATOCRIT 32.8 % (35.4-49); HEMOGLOBIN 10.2 GM/dL (11.7-16.9); MCH 24.1 pg (25.7-33.7); MEAN CELL VOLUME 77.7 fl (80-96); RBC 4.22 M/mm3 (4.00-5.60); RDW 22.9 % (11.9-15.9)
[2023-09-11 09:49] LABS: WHITE BLOOD COUNT 39.7 K/mm3 (4.0-10.0)
[2023-09-11] MEDS: POVIDONE-IODINE 10% SOLN 118 ML BOTTLE TP SCH (09:51)
[2023-09-11] MEDS: AMINO ACIDS/PROTEIN HYDROLYS 30 ML LIQUID.PKT PO SCH ×3 (09:51→18:11)
[2023-09-11] MEDS: DEXAMETHASONE 4 MG TABLET (FP) PO SCH (09:51)
[2023-09-11] MEDS: MULTIVIT-MINERALS ORAL LIQUID PO SCH (09:51)
[2023-09-11] MEDS: PANTOPRAZOLE 40 MG TABLET PO SCH (09:52)
[2023-09-11] MEDS: BUPRENORPHINE/NALOXONE 1 EACH, BUPRENORPHINE/NALOXONE 2 EACH SL SCH (09:52)
[2023-09-11 09:53] LABS: BLOOD UREA NITROGEN 19.3 mg/dL (7-18)
[2023-09-11 09:54] LABS: BILIRUBIN,TOTAL 0.4 mg/dL (0.2-1); CREATININE 0.9 mg/dL (0.55-1.3); TOT PROT 7.8 g/dl (6.4-8.2)
[2023-09-11 09:56] LABS: CALCIUM 9.2 mg/dL (8.5-10.1); MAGNESIUM 2.4 mg/dL (1.8-2.4)
[2023-09-11 10:39] LABS: ANISOCYTOSIS 2+; MACROCYTOSIS 1+; OVALOCYTE 2+; TOXIC GRANULATION 3+
[2023-09-11 11:12] LABS: MEAN PLT VOLUME 8.4 fl (7.5-11.1); PLATELET COUNT 443 10^3/uL (134-434)
[2023-09-11 12:18] LABS: HEMATOCRIT 30.5 % (35.4-49); HEMOGLOBIN 9.6 GM/dL (11.7-16.9); MCH 24.3 pg (25.7-33.7); MCHC 31.4 g/dl (32.0-35.9); MEAN CELL VOLUME 77.4 fl (80-96); MEAN PLT VOLUME 8.7 fl (7.5-11.1); PLATELET COUNT 541 10^3/uL (134-434); RBC 3.94 M/mm3 (4.00-5.60); RDW 23.2 % (11.9-15.9)
[2023-09-11 12:22] LABS: WHITE BLOOD COUNT 33.1 K/mm3 (4.0-10.0)
[2023-09-11 13:52] LABS: ANISOCYTOSIS 2+; MACROCYTOSIS 0
[2023-09-11 14:20] LABS: ALLENS TEST POSITIVE; ARTERIAL BLD GAS O2 SATURATION 94.1 % (95-98); ARTERIAL BLOOD GAS BASE EXCESS -4.9 mmol/L (-2-2); ARTERIAL BLOOD GAS PO2 64.1 mmHg (80-100); ARTERIAL BLOOD GAS pH 7.469 (7.350-7.450)
[2023-09-11] MEDS: CARBAMIDE PEROXIDE 6.5% OTIC 15 ML BOTTLE AU SCH ×2 (15:28→23:32)
[2023-09-11] MEDS: oxyCODONE HCL 5 MG TABLET PO PRN ×2 (15:32→21:25)
[2023-09-11] MEDS: VANCOMYCIN/WATER FOR INJ (PEG) 1,000 MG/200 ML BAG IVPB SCH ×3 (17:51→23:32)
[2023-09-11] MEDS: SODIUM CHLORIDE 1,000 ML IV SCH (18:08)
[2023-09-11] MEDS: AMINO ACIDS 4.25%/D5W 1,000 ML IV SCH (18:10)
[2023-09-11 18:20] LABS: LACTIC ACID 3.9 mmol/L (0.4-2.0)
[2023-09-11] MEDS ORDERED: SODIUM CHLORIDE 1,000 ML IV STA (20:38)
[2023-09-11] MEDS ORDERED: REMDESIVIR 200 MG in SODIUM CHLORIDE 250 ML IVPB ONE (21:00)
[2023-09-12] MEDS: MAG HYDROX/AL HYDROX/SIMETH 30 ML UNIT-DOSE CUP PO SCH ×4 (00:16→17:07)
[2023-09-12] MEDS: VANCOMYCIN 250 MG/5 ML ORAL SOLUTION PO SCH ×4 (02:30→17:07)
[2023-09-12] MEDS: oxyCODONE HCL 5 MG TABLET PO PRN ×3 (04:05→17:03)
[2023-09-12] MEDS: PANTOPRAZOLE 40 MG TABLET PO SCH (10:08)
[2023-09-12] MEDS: AMINO ACIDS 4.25%/D5W 1,000 ML IV SCH ×2 (10:08→16:34)
[2023-09-12] MEDS: AMINO ACIDS/PROTEIN HYDROLYS 30 ML LIQUID.PKT PO SCH ×5 (10:08→17:37)
[2023-09-12] MEDS: SODIUM CHLORIDE 1,000 ML IV SCH ×2 (10:08→16:34)
[2023-09-12] MEDS: VANCOMYCIN/WATER FOR INJ (PEG) 1,000 MG/200 ML BAG IVPB SCH ×2 (10:08→22:46)
[2023-09-12] MEDS: DEXAMETHASONE 4 MG TABLET (FP) PO SCH (10:08)
[2023-09-12] MEDS: BUPRENORPHINE/NALOXONE 1 EACH, BUPRENORPHINE/NALOXONE 2 EACH SL SCH (10:10)
[2023-09-12] MEDS: MULTIVIT-MINERALS ORAL LIQUID PO SCH (10:20)
[2023-09-12 11:10] LABS: BASO % 0.1 % (0-2.0); HEMATOCRIT 25.5 % (35.4-49); HEMOGLOBIN 8.4 GM/dL (11.7-16.9); LYMPH % 4.9 % (8-40); MCH 24.7 pg (25.7-33.7); MCHC 32.9 g/dl (32.0-35.9); MEAN CELL VOLUME 74.9 fl (80-96); MEAN PLT VOLUME 7.7 fl (7.5-11.1); MONO % 5.6 % (3.8-10.2); NEUT % 89.4 % (42.8-82.8); PLATELET COUNT 342 10^3/uL (134-434); RDW 23.4 % (11.9-15.9); WHITE BLOOD COUNT 15.1 K/mm3 (4.0-10.0)
[2023-09-12 11:25] LABS: POTASSIUM 3.4 mmol/L (3.5-5.1)
[2023-09-12 11:27] LABS: CALCIUM 8.2 mg/dL (8.5-10.1)
[2023-09-12 11:28] LABS: ALBUMIN 1.8 g/dl (3.4-5.0); BLOOD UREA NITROGEN 31.8 mg/dL (7-18); MAGNESIUM 2.1 mg/dL (1.8-2.4)
[2023-09-12 11:31] LABS: CREATININE 0.9 mg/dL (0.55-1.3)
[2023-09-12 11:33] LABS: BILIRUBIN,TOTAL 0.4 mg/dL (0.2-1); TOT PROT 6.3 g/dl (6.4-8.2)
[2023-09-12] MEDS ORDERED: POTASSIUM CHLORIDE ORAL LIQUID 20 MEQ/15 ML PO ONE (12:15)
[2023-09-12 12:26] LABS: ANISOCYTOSIS 2+
[2023-09-12] MEDS: CARBAMIDE PEROXIDE 6.5% OTIC 15 ML BOTTLE AU SCH ×2 (13:05→22:46)
[2023-09-12] MEDS: POVIDONE-IODINE 10% SOLN 118 ML BOTTLE TP SCH (13:06)
[2023-09-12] MEDS: AZTREONAM 2 GM in DEXTROSE 5%-WATER 100 ML IVPB SCH ×2 (17:03→17:27)
[2023-09-12] MEDS: REMDESIVIR 100 MG in SODIUM CHLORIDE 250 ML IVPB SCH (22:45)
[2023-09-13] MEDS: MAG HYDROX/AL HYDROX/SIMETH 30 ML UNIT-DOSE CUP PO SCH ×4 (00:08→17:19)
[2023-09-13] MEDS: VANCOMYCIN 250 MG/5 ML ORAL SOLUTION PO SCH ×4 (00:09→18:12)
[2023-09-13] MEDS: oxyCODONE HCL 5 MG TABLET PO PRN ×4 (00:18→18:21)
[2023-09-13] MEDS: AZTREONAM 2 GM in DEXTROSE 5%-WATER 100 ML IVPB SCH ×3 (01:23→17:21)
[2023-09-13 08:10] LABS: BASO % 0.2 % (0-2.0); EOS % 0.1 % (0-4.5); HEMATOCRIT 24.2 % (35.4-49); HEMOGLOBIN 7.7 GM/dL (11.7-16.9); MCH 24.1 pg (25.7-33.7); MCHC 31.8 g/dl (32.0-35.9); MEAN CELL VOLUME 75.9 fl (80-96); MEAN PLT VOLUME 8.3 fl (7.5-11.1); NEUT % 86.7 % (42.8-82.8); PLATELET COUNT 275 10^3/uL (134-434); RBC 3.19 M/mm3 (4.00-5.60); RDW 23.1 % (11.9-15.9); WHITE BLOOD COUNT 14.5 K/mm3 (4.0-10.0)
[2023-09-13 08:27] LABS: ALBUMIN 1.7 g/dl (3.4-5.0); CALCIUM 7.4 mg/dL (8.5-10.1)
[2023-09-13 08:29] LABS: CREATININE 0.6 mg/dL (0.55-1.3)
[2023-09-13 08:31] LABS: BILIRUBIN,TOTAL 0.4 mg/dL (0.2-1); TOT PROT 5.9 g/dl (6.4-8.2)
[2023-09-13] MEDS: AMINO ACIDS/PROTEIN HYDROLYS 30 ML LIQUID.PKT PO SCH ×3 (10:56→17:18)
[2023-09-13] MEDS: DEXAMETHASONE 4 MG TABLET (FP) PO SCH (10:56)
[2023-09-13] MEDS: PANTOPRAZOLE 40 MG TABLET PO SCH (10:57)
[2023-09-13] MEDS: VANCOMYCIN/WATER FOR INJ (PEG) 1,000 MG/200 ML BAG IVPB SCH ×2 (10:58→23:33)
[2023-09-13] MEDS: BUPRENORPHINE/NALOXONE 1 EACH, BUPRENORPHINE/NALOXONE 2 EACH SL SCH (11:07)
[2023-09-13] MEDS: MULTIVIT-MINERALS ORAL LIQUID PO SCH (11:08)
[2023-09-13] MEDS: CARBAMIDE PEROXIDE 6.5% OTIC 15 ML BOTTLE AU SCH ×2 (11:08→22:39)
[2023-09-13] MEDS: POTASSIUM CHLORIDE 20 MEQ in AMINO ACIDS 4.25%/D5W 1,000 ML IV SCH (17:16)
[2023-09-13] MEDS: POVIDONE-IODINE 10% SOLN 118 ML BOTTLE TP SCH (17:37)
[2023-09-13] MEDS: SODIUM CHLORIDE 1,000 ML IV SCH (18:16)
[2023-09-13] MEDS: REMDESIVIR 100 MG in SODIUM CHLORIDE 250 ML IVPB SCH (20:04)
[2023-09-13] MEDS: POTASSIUM CHLORIDE TABS 20 MEQ TABLET.ER (FP) PO SCH (22:38)
[2023-09-14] MEDS: MAG HYDROX/AL HYDROX/SIMETH 30 ML UNIT-DOSE CUP PO SCH ×5 (01:33→23:50)
[2023-09-14] MEDS: VANCOMYCIN 250 MG/5 ML ORAL SOLUTION PO SCH ×2 (01:34→07:32)
[2023-09-14] MEDS: AZTREONAM 2 GM in DEXTROSE 5%-WATER 100 ML IVPB SCH ×2 (01:35→10:49)
[2023-09-14] MEDS: oxyCODONE HCL 5 MG TABLET PO PRN ×4 (01:43→23:47)
[2023-09-14] MEDS: AMINO ACIDS/PROTEIN HYDROLYS 30 ML LIQUID.PKT PO SCH ×3 (08:28→17:05)
[2023-09-14] MEDS ORDERED: ACETAMINOPHEN 325 MG TABLET (FP) PO PRN (09:48)
[2023-09-14] MEDS ORDERED: SODIUM CHLORIDE FOR INHALATION 3 ML VIAL.NEB IH PRN (09:48)
[2023-09-14] MEDS ORDERED: ALBUTEROL SO4 2.5/IPRATROPIUM 0.5 INH SOL 3 ML VIAL.NEB. NEB PRN (09:48)
[2023-09-14] MEDS: SODIUM CHLORIDE 1,000 ML IV SCH (10:43)
[2023-09-14] MEDS: DEXAMETHASONE 4 MG TABLET (FP) PO SCH (10:44)
[2023-09-14] MEDS: BUPRENORPHINE/NALOXONE 1 EACH, BUPRENORPHINE/NALOXONE 2 EACH SL SCH ×2 (10:44→11:00)
[2023-09-14] MEDS: VANCOMYCIN/WATER FOR INJ (PEG) 1,000 MG/200 ML BAG IVPB SCH ×2 (10:46→23:28)
[2023-09-14] MEDS: PANTOPRAZOLE 40 MG TABLET PO SCH (10:46)
[2023-09-14] MEDS: POTASSIUM CHLORIDE TABS 20 MEQ TABLET.ER (FP) PO SCH ×3 (10:46→22:29)
[2023-09-14] MEDS: CARBAMIDE PEROXIDE 6.5% OTIC 15 ML BOTTLE AU SCH ×3 (10:47→23:30)
[2023-09-14] MEDS: MULTIVIT-MINERALS ORAL LIQUID PO SCH ×2 (10:48→10:56)
[2023-09-14 11:04] LABS: BASO % 0.1 % (0-2.0); EOS % 0.5 % (0-4.5); HEMATOCRIT 25.6 % (35.4-49); HEMOGLOBIN 7.7 GM/dL (11.7-16.9); LYMPH % 9.1 % (8-40); MCH 23.9 pg (25.7-33.7); MCHC 30.1 g/dl (32.0-35.9); MEAN CELL VOLUME 79.3 fl (80-96); MEAN PLT VOLUME 8.1 fl (7.5-11.1); MONO % 4.4 % (3.8-10.2); NEUT % 85.9 % (42.8-82.8); PLATELET COUNT 305 10^3/uL (134-434); RBC 3.22 M/mm3 (4.00-5.60); RDW 23.4 % (11.9-15.9); WHITE BLOOD COUNT 13.5 K/mm3 (4.0-10.0)
[2023-09-14 11:22] LABS: ALBUMIN 1.7 g/dl (3.4-5.0); BLOOD UREA NITROGEN 17.9 mg/dL (7-18); CALCIUM 7.8 mg/dL (8.5-10.1); MAGNESIUM 1.9 mg/dL (1.8-2.4)
[2023-09-14 11:26] LABS: CREATININE 0.6 mg/dL (0.55-1.3)
[2023-09-14 11:27] LABS: BILIRUBIN,TOTAL 0.4 mg/dL (0.2-1); TOT PROT 5.9 g/dl (6.4-8.2)
[2023-09-14] MEDS: POVIDONE-IODINE 10% SOLN 118 ML BOTTLE TP SCH (11:33)
[2023-09-14] MEDS ORDERED: VANCOMYCIN 250 MG/5 ML ORAL SOLUTION PO SCH (12:00)
[2023-09-14] MEDS: MEROPENEM 1 GM in DEXTROSE 5%-WATER 100 ML IVPB SCH ×2 (15:08→17:45)
[2023-09-14] MEDS: POTASSIUM CHLORIDE 20 MEQ in AMINO ACIDS 4.25%/D5W 1,000 ML IV SCH (15:09)
[2023-09-14] MEDS: DOXYCYCLINE INJECTION 100 MG in DEXTROSE 5%-WATER 100 ML IVPB SCH (22:28)
[2023-09-14] MEDS: REMDESIVIR 100 MG in SODIUM CHLORIDE 250 ML IVPB SCH (22:40)
[2023-09-15] MEDS: MAG HYDROX/AL HYDROX/SIMETH 30 ML UNIT-DOSE CUP PO SCH ×5 (00:49→23:53)
[2023-09-15] MEDS: MEROPENEM 1 GM in DEXTROSE 5%-WATER 100 ML IVPB SCH ×3 (02:08→17:39)
[2023-09-15] MEDS: oxyCODONE HCL 5 MG TABLET PO PRN ×4 (05:28→23:14)
[2023-09-15 09:25] LABS: BASO % 0.1 % (0-2.0); EOS % 0.6 % (0-4.5); HEMATOCRIT 27.6 % (35.4-49); HEMOGLOBIN 8.3 GM/dL (11.7-16.9); LYMPH % 9.9 % (8-40); MCH 24.3 pg (25.7-33.7); MCHC 30.1 g/dl (32.0-35.9); MEAN CELL VOLUME 80.7 fl (80-96); MEAN PLT VOLUME 8.1 fl (7.5-11.1); MONO % 5.6 % (3.8-10.2); NEUT % 83.8 % (42.8-82.8); PLATELET COUNT 347 10^3/uL (134-434); RBC 3.42 M/mm3 (4.00-5.60); RDW 23.1 % (11.9-15.9); WHITE BLOOD COUNT 14.5 K/mm3 (4.0-10.0)
[2023-09-15 10:00] LABS: ALBUMIN 1.9 g/dl (3.4-5.0); BLOOD UREA NITROGEN 15.9 mg/dL (7-18); CALCIUM 8.2 mg/dL (8.5-10.1)
[2023-09-15 10:01] LABS: MAGNESIUM 2.1 mg/dL (1.8-2.4)
[2023-09-15 10:03] LABS: CREATININE 0.6 mg/dL (0.55-1.3)
[2023-09-15 10:04] LABS: BILIRUBIN,TOTAL 0.3 mg/dL (0.2-1); TOT PROT 6.4 g/dl (6.4-8.2)
[2023-09-15] MEDS ORDERED: oxyCODONE HCL 5 MG TABLET PO PRN (10:30)
[2023-09-15] MEDS ORDERED: ACETAMINOPHEN 325 MG TABLET (FP) PO PRN (10:30)
[2023-09-15] MEDS: DOXYCYCLINE INJECTION 100 MG in DEXTROSE 5%-WATER 100 ML IVPB SCH ×2 (11:16→22:53)
[2023-09-15] MEDS: AMINO ACIDS/PROTEIN HYDROLYS 30 ML LIQUID.PKT PO SCH ×3 (11:16→17:40)
[2023-09-15] MEDS: DEXAMETHASONE 4 MG TABLET (FP) PO SCH (11:19)
[2023-09-15] MEDS: PANTOPRAZOLE 40 MG TABLET PO SCH (11:19)
[2023-09-15] MEDS: POTASSIUM CHLORIDE TABS 20 MEQ TABLET.ER (FP) PO SCH ×2 (11:19→23:53)
[2023-09-15] MEDS: CARBAMIDE PEROXIDE 6.5% OTIC 15 ML BOTTLE AU SCH ×2 (11:29→23:53)
[2023-09-15] MEDS: POVIDONE-IODINE 10% SOLN 118 ML BOTTLE TP SCH (11:29)
[2023-09-15] MEDS: MULTIVIT-MINERALS ORAL LIQUID PO SCH (11:29)
[2023-09-15] MEDS: VANCOMYCIN/WATER FOR INJ (PEG) 1,000 MG/200 ML BAG IVPB SCH ×2 (11:30→22:52)
[2023-09-15] MEDS: SODIUM CHLORIDE 1,000 ML IV SCH (12:38)
[2023-09-15] MEDS: DAPTOMYCIN 500 MG in SODIUM CHLORIDE 50 ML IVPB SCH (17:51)
[2023-09-15] MEDS: POTASSIUM CHLORIDE 20 MEQ in AMINO ACIDS 4.25%/D5W 1,000 ML IV SCH ×2 (18:08→18:13)
[2023-09-15] MEDS: REMDESIVIR 100 MG in SODIUM CHLORIDE 250 ML IVPB SCH ×2 (20:50→21:58)
[2023-09-15] MEDS: MIRTAZAPINE 15 MG TABLET (FP) PO SCH (23:53)
[2023-09-16] MEDS: MEROPENEM 1 GM in DEXTROSE 5%-WATER 100 ML IVPB SCH ×4 (02:16→18:51)
[2023-09-16] MEDS: MAG HYDROX/AL HYDROX/SIMETH 30 ML UNIT-DOSE CUP PO SCH ×3 (05:08→18:12)
[2023-09-16] MEDS: oxyCODONE HCL 5 MG TABLET PO PRN ×5 (05:08→22:14)
[2023-09-16] MEDS: POTASSIUM CHLORIDE TABS 20 MEQ TABLET.ER (FP) PO SCH ×4 (05:09→22:02)
[2023-09-16 08:17] LABS: POTASSIUM 3.6 mmol/L (3.5-5.1)
[2023-09-16 08:24] LABS: CALCIUM 7.9 mg/dL (8.5-10.1)
[2023-09-16 08:25] LABS: ALBUMIN 1.6 g/dl (3.4-5.0); BLOOD UREA NITROGEN 13.6 mg/dL (7-18); MAGNESIUM 1.9 mg/dL (1.8-2.4)
[2023-09-16 08:26] LABS: HEMATOCRIT 24.3 % (35.4-49); HEMOGLOBIN 7.5 GM/dL (11.7-16.9); MCH 24.8 pg (25.7-33.7); MEAN PLT VOLUME 8.1 fl (7.5-11.1); PLATELET COUNT 341 10^3/uL (134-434); RBC 3.04 M/mm3 (4.00-5.60); RDW 23.4 % (11.9-15.9); WHITE BLOOD COUNT 12.6 K/mm3 (4.0-10.0)
[2023-09-16 08:28] LABS: CREATININE 0.4 mg/dL (0.55-1.3)
[2023-09-16 08:30] LABS: BILIRUBIN,TOTAL 0.2 mg/dL (0.2-1); TOT PROT 5.4 g/dl (6.4-8.2)
[2023-09-16] MEDS: AMINO ACIDS/PROTEIN HYDROLYS 30 ML LIQUID.PKT PO SCH ×3 (09:02→17:04)
[2023-09-16] MEDS: DEXAMETHASONE 4 MG TABLET (FP) PO SCH (09:04)
[2023-09-16] MEDS: PANTOPRAZOLE 40 MG TABLET PO SCH (09:04)
[2023-09-16] MEDS: CARBAMIDE PEROXIDE 6.5% OTIC 15 ML BOTTLE AU SCH ×2 (09:12→22:02)
[2023-09-16] MEDS: POVIDONE-IODINE 10% SOLN 118 ML BOTTLE TP SCH (09:12)
[2023-09-16] MEDS: SODIUM CHLORIDE 1,000 ML IV SCH (09:24)
[2023-09-16] MEDS: VANCOMYCIN/WATER FOR INJ (PEG) 1,000 MG/200 ML BAG IVPB SCH ×2 (09:24→22:03)
[2023-09-16] MEDS: MULTIVITAMINS THER W-MINERALS COMBO TABLET (FP) PO SCH (09:24)
[2023-09-16 10:35] LABS: ANISOCYTOSIS 2+; MACROCYTOSIS 0; TEAR DROP CELLS 1+
[2023-09-16] MEDS: DOXYCYCLINE INJECTION 100 MG in DEXTROSE 5%-WATER 100 ML IVPB SCH ×2 (10:38→22:03)
[2023-09-16] MEDS: DAPTOMYCIN 500 MG in SODIUM CHLORIDE 50 ML IVPB SCH ×2 (16:52→18:50)
[2023-09-16] MEDS: POTASSIUM CHLORIDE 20 MEQ in AMINO ACIDS 4.25%/D5W 1,000 ML IV SCH (17:04)
[2023-09-16] MEDS: MIRTAZAPINE 15 MG TABLET (FP) PO SCH (22:03)
[2023-09-17] MEDS: MAG HYDROX/AL HYDROX/SIMETH 30 ML UNIT-DOSE CUP PO SCH ×4 (00:23→17:19)
[2023-09-17] MEDS: MEROPENEM 1 GM in DEXTROSE 5%-WATER 100 ML IVPB SCH ×3 (02:50→17:18)
[2023-09-17] MEDS: oxyCODONE HCL 5 MG TABLET PO PRN ×5 (02:50→20:41)
[2023-09-17] MEDS: AMINO ACIDS/PROTEIN HYDROLYS 30 ML LIQUID.PKT PO SCH ×3 (07:45→17:11)
[2023-09-17 08:24] LABS: HEMATOCRIT 25.1 % (35.4-49); HEMOGLOBIN 7.6 GM/dL (11.7-16.9); MCH 24.7 pg (25.7-33.7); MCHC 30.5 g/dl (32.0-35.9); MEAN CELL VOLUME 81.1 fl (80-96); MEAN PLT VOLUME 8.2 fl (7.5-11.1); PLATELET COUNT 296 10^3/uL (134-434); RBC 3.09 M/mm3 (4.00-5.60); RDW 23.9 % (11.9-15.9); WHITE BLOOD COUNT 9.9 K/mm3 (4.0-10.0)
[2023-09-17 08:33] LABS: POTASSIUM 3.7 mmol/L (3.5-5.1)
[2023-09-17 08:36] LABS: CALCIUM 7.9 mg/dL (8.5-10.1)
[2023-09-17 08:37] LABS: ALBUMIN 1.6 g/dl (3.4-5.0); BLOOD UREA NITROGEN 11.6 mg/dL (7-18); MAGNESIUM 1.8 mg/dL (1.8-2.4)
[2023-09-17 08:40] LABS: CREATININE 0.4 mg/dL (0.55-1.3)
[2023-09-17 08:41] LABS: BILIRUBIN,TOTAL 0.3 mg/dL (0.2-1)
[2023-09-17 08:42] LABS: TOT PROT 5.2 g/dl (6.4-8.2)
[2023-09-17] MEDS: CARBAMIDE PEROXIDE 6.5% OTIC 15 ML BOTTLE AU SCH ×2 (09:50→21:33)
[2023-09-17] MEDS: DEXAMETHASONE 4 MG TABLET (FP) PO SCH (09:51)
[2023-09-17] MEDS: POVIDONE-IODINE 10% SOLN 118 ML BOTTLE TP SCH (09:51)
[2023-09-17] MEDS: POTASSIUM CHLORIDE TABS 20 MEQ TABLET.ER (FP) PO SCH ×3 (09:51→21:33)
[2023-09-17] MEDS: PANTOPRAZOLE 40 MG TABLET PO SCH (09:52)
[2023-09-17] MEDS: VANCOMYCIN/WATER FOR INJ (PEG) 1,000 MG/200 ML BAG IVPB SCH ×2 (09:53→21:34)
[2023-09-17] MEDS: DOXYCYCLINE INJECTION 100 MG in DEXTROSE 5%-WATER 100 ML IVPB SCH ×2 (09:53→21:34)
[2023-09-17] MEDS: MULTIVITAMINS THER W-MINERALS COMBO TABLET (FP) PO SCH ×2 (09:54→09:59)
[2023-09-17] MEDS: SODIUM CHLORIDE 1,000 ML IV SCH (10:21)
[2023-09-17 10:24] LABS: ANISOCYTOSIS 1+; MACROCYTOSIS 1+
[2023-09-17] MEDS: DAPTOMYCIN 500 MG in SODIUM CHLORIDE 50 ML IVPB SCH (15:22)
[2023-09-17] MEDS: POTASSIUM CHLORIDE 20 MEQ in AMINO ACIDS 4.25%/D5W 1,000 ML IV SCH (15:22)
[2023-09-17] MEDS: MIRTAZAPINE 15 MG TABLET (FP) PO SCH (21:34)
[2023-09-18] MEDS: MAG HYDROX/AL HYDROX/SIMETH 30 ML UNIT-DOSE CUP PO SCH ×4 (02:45→17:45)
[2023-09-18] MEDS: MEROPENEM 1 GM in DEXTROSE 5%-WATER 100 ML IVPB SCH ×3 (02:46→17:53)
[2023-09-18] MEDS: oxyCODONE HCL 5 MG TABLET PO PRN ×5 (02:49→21:15)
[2023-09-18] MEDS: DOXYCYCLINE INJECTION 100 MG in DEXTROSE 5%-WATER 100 ML IVPB SCH ×2 (09:36→21:14)
[2023-09-18 09:49] LABS: HEMATOCRIT 23.1 % (35.4-49); HEMOGLOBIN 7.2 GM/dL (11.7-16.9); MCH 24.9 pg (25.7-33.7); MCHC 31.3 g/dl (32.0-35.9); MEAN CELL VOLUME 79.6 fl (80-96); MEAN PLT VOLUME 7.9 fl (7.5-11.1); PLATELET COUNT 415 10^3/uL (134-434); RBC 2.91 M/mm3 (4.00-5.60); RDW 24.5 % (11.9-15.9); WHITE BLOOD COUNT 13.3 K/mm3 (4.0-10.0)
[2023-09-18 10:04] LABS: POTASSIUM 3.5 mmol/L (3.5-5.1)
[2023-09-18 10:09] LABS: ALBUMIN 1.5 g/dl (3.4-5.0); BLOOD UREA NITROGEN 11.3 mg/dL (7-18); CALCIUM 7.9 mg/dL (8.5-10.1)
[2023-09-18] MEDS: CARBAMIDE PEROXIDE 6.5% OTIC 15 ML BOTTLE AU SCH ×2 (10:10→21:14)
[2023-09-18] MEDS: DEXAMETHASONE 4 MG TABLET (FP) PO SCH (10:10)
[2023-09-18] MEDS: POVIDONE-IODINE 10% SOLN 118 ML BOTTLE TP SCH (10:10)
[2023-09-18] MEDS: AMINO ACIDS/PROTEIN HYDROLYS 30 ML LIQUID.PKT PO SCH ×3 (10:10→17:13)
[2023-09-18] MEDS: SODIUM CHLORIDE 1,000 ML IV SCH (10:10)
[2023-09-18] MEDS: MULTIVITAMINS THER W-MINERALS COMBO TABLET (FP) PO SCH (10:11)
[2023-09-18] MEDS: PANTOPRAZOLE 40 MG TABLET PO SCH (10:11)
[2023-09-18] MEDS: POTASSIUM CHLORIDE TABS 20 MEQ TABLET.ER (FP) PO SCH ×2 (10:11→21:14)
[2023-09-18 10:15] LABS: CREATININE 0.5 mg/dL (0.55-1.3)
[2023-09-18 10:17] LABS: BILIRUBIN,TOTAL 0.2 mg/dL (0.2-1)
[2023-09-18 10:29] LABS: ANISOCYTOSIS 3+; MACROCYTOSIS 0
[2023-09-18] MEDS: VANCOMYCIN/WATER FOR INJ (PEG) 1,000 MG/200 ML BAG IVPB SCH ×2 (12:35→21:14)
[2023-09-18] MEDS: DAPTOMYCIN 500 MG in SODIUM CHLORIDE 50 ML IVPB SCH (16:09)
[2023-09-18] MEDS: MIDODRINE HCL 5 MG TABLET PO SCH ×2 (16:09→18:58)
[2023-09-18] MEDS: POTASSIUM CHLORIDE 20 MEQ in AMINO ACIDS 4.25%/D5W 1,000 ML IV SCH (17:12)
[2023-09-18] MEDS: MIRTAZAPINE 15 MG TABLET (FP) PO SCH (21:14)
[2023-09-19] MEDS: MAG HYDROX/AL HYDROX/SIMETH 30 ML UNIT-DOSE CUP PO SCH ×4 (01:02→17:20)
[2023-09-19] MEDS: MEROPENEM 1 GM in DEXTROSE 5%-WATER 100 ML IVPB SCH ×3 (02:04→17:56)
[2023-09-19] MEDS: oxyCODONE HCL 5 MG TABLET PO PRN ×5 (02:11→19:45)
[2023-09-19 08:27] LABS: HEMATOCRIT 29.9 % (35.4-49); MCH 24.5 pg (25.7-33.7); MCHC 30.2 g/dl (32.0-35.9); MEAN CELL VOLUME 81.2 fl (80-96); MEAN PLT VOLUME 7.9 fl (7.5-11.1); PLATELET COUNT 375 10^3/uL (134-434); RBC 3.68 M/mm3 (4.00-5.60); RDW 25.2 % (11.9-15.9); WHITE BLOOD COUNT 14.9 K/mm3 (4.0-10.0)
[2023-09-19 08:35] LABS: POTASSIUM 4.2 mmol/L (3.5-5.1)
[2023-09-19 08:38] LABS: ALBUMIN 1.8 g/dl (3.4-5.0); BLOOD UREA NITROGEN 12.4 mg/dL (7-18); MAGNESIUM 1.8 mg/dL (1.8-2.4)
[2023-09-19 08:41] LABS: CREATININE 0.5 mg/dL (0.55-1.3)
[2023-09-19 08:42] LABS: BILIRUBIN,TOTAL 0.6 mg/dL (0.2-1); TOT PROT 5.8 g/dl (6.4-8.2)
[2023-09-19 09:16] LABS: ANISOCYTOSIS 1+; MACROCYTOSIS 1+
[2023-09-19] MEDS: DEXAMETHASONE 4 MG TABLET (FP) PO SCH (10:09)
[2023-09-19] MEDS: MULTIVITAMINS THER W-MINERALS COMBO TABLET (FP) PO SCH (10:09)
[2023-09-19] MEDS: PANTOPRAZOLE 40 MG TABLET PO SCH (10:10)
[2023-09-19] MEDS: AMINO ACIDS/PROTEIN HYDROLYS 30 ML LIQUID.PKT PO SCH ×3 (10:10→17:10)
[2023-09-19] MEDS: POTASSIUM CHLORIDE TABS 20 MEQ TABLET.ER (FP) PO SCH ×2 (10:13→22:00)
[2023-09-19] MEDS: MIDODRINE HCL 5 MG TABLET PO SCH ×3 (10:13→17:57)
[2023-09-19] MEDS: SODIUM CHLORIDE 1,000 ML IV SCH (10:36)
[2023-09-19] MEDS: DOXYCYCLINE INJECTION 100 MG in DEXTROSE 5%-WATER 100 ML IVPB SCH ×2 (10:54→22:03)
[2023-09-19] MEDS: VANCOMYCIN/WATER FOR INJ (PEG) 1,000 MG/200 ML BAG IVPB SCH (13:10)
[2023-09-19] MEDS: CARBAMIDE PEROXIDE 6.5% OTIC 15 ML BOTTLE AU SCH ×2 (13:14→21:59)
[2023-09-19] MEDS: POVIDONE-IODINE 10% SOLN 118 ML BOTTLE TP SCH (13:14)
[2023-09-19] MEDS: POTASSIUM CHLORIDE 20 MEQ in AMINO ACIDS 4.25%/D5W 1,000 ML IV SCH (14:57)
[2023-09-19] MEDS: DAPTOMYCIN 500 MG in SODIUM CHLORIDE 50 ML IVPB SCH (14:57)
[2023-09-19] MEDS: MIRTAZAPINE 15 MG TABLET (FP) PO SCH (22:02)
[2023-09-20] MEDS: MAG HYDROX/AL HYDROX/SIMETH 30 ML UNIT-DOSE CUP PO SCH ×4 (00:10→17:30)
[2023-09-20] MEDS: VANCOMYCIN ORAL SOLUTION 125 MG/2.5 ML PO SCH ×4 (00:58→17:31)
[2023-09-20] MEDS: oxyCODONE HCL 5 MG TABLET PO PRN ×5 (01:07→21:06)
[2023-09-20] MEDS: MEROPENEM 1 GM in DEXTROSE 5%-WATER 100 ML IVPB SCH ×3 (01:12→17:31)
[2023-09-20] MEDS: AMINO ACIDS/PROTEIN HYDROLYS 30 ML LIQUID.PKT PO SCH ×3 (08:19→16:39)
[2023-09-20] MEDS ORDERED: LACTATED RINGERS SOLUTION 1000 ML INFUS.BAG IV ONE ×2 (10:03→11:15)
[2023-09-20] MEDS: PANTOPRAZOLE 40 MG TABLET PO SCH (10:05)
[2023-09-20] MEDS: SODIUM CHLORIDE 1,000 ML IV SCH (10:05)
[2023-09-20] MEDS: MIDODRINE HCL 5 MG TABLET PO SCH ×3 (10:06→17:30)
[2023-09-20] MEDS: POTASSIUM CHLORIDE TABS 20 MEQ TABLET.ER (FP) PO SCH ×2 (10:06→21:13)
[2023-09-20] MEDS: CARBAMIDE PEROXIDE 6.5% OTIC 15 ML BOTTLE AU SCH ×2 (10:07→21:13)
[2023-09-20] MEDS: DEXAMETHASONE 4 MG TABLET (FP) PO SCH (10:07)
[2023-09-20] MEDS: DOXYCYCLINE INJECTION 100 MG in DEXTROSE 5%-WATER 100 ML IVPB SCH ×2 (10:08→21:07)
[2023-09-20] MEDS: MULTIVITAMINS THER W-MINERALS COMBO TABLET (FP) PO SCH (10:09)
[2023-09-20] MEDS: POVIDONE-IODINE 10% SOLN 118 ML BOTTLE TP SCH (10:09)
[2023-09-20] MEDS ORDERED: LACTATED RINGERS SOLUTION 500 ML IV ONE (11:15)
[2023-09-20] MEDS: NYSTATIN 500,000 UNITS/5 ML SUSPENSION PO SCH ×2 (12:56→17:30)
[2023-09-20] MEDS: DAPTOMYCIN 500 MG in SODIUM CHLORIDE 50 ML IVPB SCH (14:34)
[2023-09-20] MEDS: POTASSIUM CHLORIDE 20 MEQ in AMINO ACIDS 4.25%/D5W 1,000 ML IV SCH (14:34)
[2023-09-20] MEDS: MIRTAZAPINE 15 MG TABLET (FP) PO SCH (21:07)
[2023-09-21] MEDS: VANCOMYCIN ORAL SOLUTION 125 MG/2.5 ML PO SCH ×4 (02:13→18:44)
[2023-09-21] MEDS: NYSTATIN 500,000 UNITS/5 ML SUSPENSION PO SCH ×4 (02:13→17:12)
[2023-09-21] MEDS: MAG HYDROX/AL HYDROX/SIMETH 30 ML UNIT-DOSE CUP PO SCH ×4 (02:13→17:12)
[2023-09-21] MEDS: oxyCODONE HCL 5 MG TABLET PO PRN ×5 (02:14→21:24)
[2023-09-21] MEDS: MEROPENEM 1 GM in DEXTROSE 5%-WATER 100 ML IVPB SCH ×4 (02:28→18:42)
[2023-09-21] MEDS: AMINO ACIDS/PROTEIN HYDROLYS 30 ML LIQUID.PKT PO SCH ×3 (08:41→16:44)
[2023-09-21] MEDS ORDERED: SODIUM CHLORIDE FOR INHALATION 3 ML VIAL.NEB IH PRN (10:28)
[2023-09-21] MEDS ORDERED: ALBUTEROL SO4 2.5/IPRATROPIUM 0.5 INH SOL 3 ML VIAL.NEB. NEB PRN (10:28)
[2023-09-21] MEDS ORDERED: oxyCODONE HCL 5 MG TABLET PO PRN (10:28)
[2023-09-21] MEDS: SODIUM CHLORIDE 1,000 ML IV SCH (11:00)
[2023-09-21] MEDS: CARBAMIDE PEROXIDE 6.5% OTIC 15 ML BOTTLE AU SCH ×2 (11:01→21:47)
[2023-09-21] MEDS: POVIDONE-IODINE 10% SOLN 118 ML BOTTLE TP SCH (11:01)
[2023-09-21] MEDS: POTASSIUM CHLORIDE TABS 20 MEQ TABLET.ER (FP) PO SCH (11:06)
[2023-09-21] MEDS: MULTIVITAMINS THER W-MINERALS COMBO TABLET (FP) PO SCH (11:07)
[2023-09-21] MEDS: MIDODRINE HCL 5 MG TABLET PO SCH ×3 (11:20→17:10)
[2023-09-21] MEDS: DOXYCYCLINE INJECTION 100 MG in DEXTROSE 5%-WATER 100 ML IVPB SCH ×3 (11:48→21:47)
[2023-09-21] MEDS: PANTOPRAZOLE 40 MG TABLET PO SCH (11:48)
[2023-09-21] MEDS ORDERED: DOXYCYCLINE HYCLATE 100 MG VIAL ONE (11:59)
[2023-09-21 13:23] LABS: BASO % 0.1 % (0-2.0); EOS % 0.2 % (0-4.5); HEMATOCRIT 28.9 % (35.4-49); HEMOGLOBIN 9.3 GM/dL (11.7-16.9); LYMPH % 14.3 % (8-40); MCH 25.8 pg (25.7-33.7); MCHC 32.2 g/dl (32.0-35.9); MEAN CELL VOLUME 80.1 fl (80-96); MEAN PLT VOLUME 7.7 fl (7.5-11.1); MONO % 7.1 % (3.8-10.2); NEUT % 78.3 % (42.8-82.8); PLATELET COUNT 422 10^3/uL (134-434); RBC 3.61 M/mm3 (4.00-5.60); RDW 25.9 % (11.9-15.9); WHITE BLOOD COUNT 15.7 K/mm3 (4.0-10.0)
[2023-09-21 13:47] LABS: POTASSIUM 4.4 mmol/L (3.5-5.1)
[2023-09-21 13:49] LABS: ALBUMIN 1.8 g/dl (3.4-5.0); CALCIUM 7.9 mg/dL (8.5-10.1)
[2023-09-21 13:50] LABS: BLOOD UREA NITROGEN 10.8 mg/dL (7-18)
[2023-09-21 13:53] LABS: CREATININE 0.5 mg/dL (0.55-1.3)
[2023-09-21 13:54] LABS: BILIRUBIN,TOTAL 0.4 mg/dL (0.2-1); TOT PROT 5.7 g/dl (6.4-8.2)
[2023-09-21] MEDS ORDERED: POTASSIUM CHLORIDE 20 MEQ in AMINO ACIDS 4.25%/D5W 1,000 ML IV SCH (15:00)
[2023-09-21] MEDS: DAPTOMYCIN 500 MG in SODIUM CHLORIDE 50 ML IVPB SCH ×2 (15:02→15:28)
[2023-09-21] MEDS ORDERED: METOCLOPRAMIDE HCL INJECTION 10 MG/2 ML VIAL IVPUSH SCH (15:45)
[2023-09-21] MEDS: MIRTAZAPINE 15 MG TABLET (FP) PO SCH (21:47)
[2023-09-22] MEDS: MAG HYDROX/AL HYDROX/SIMETH 30 ML UNIT-DOSE CUP PO SCH ×4 (00:41→17:00)
[2023-09-22] MEDS: VANCOMYCIN ORAL SOLUTION 125 MG/2.5 ML PO SCH ×5 (00:42→17:04)
[2023-09-22] MEDS: NYSTATIN 500,000 UNITS/5 ML SUSPENSION PO SCH ×4 (00:42→17:00)
[2023-09-22] MEDS: oxyCODONE HCL 5 MG TABLET PO PRN ×2 (01:38→05:39)
[2023-09-22] MEDS: MEROPENEM 1 GM in DEXTROSE 5%-WATER 100 ML IVPB SCH ×3 (01:43→16:59)
[2023-09-22 07:58] LABS: BASO % 0.4 % (0-2.0); EOS % 0.7 % (0-4.5); HEMATOCRIT 23.7 % (35.4-49); HEMOGLOBIN 7.5 GM/dL (11.7-16.9); LYMPH % 15.3 % (8-40); MCH 25.7 pg (25.7-33.7); MCHC 31.5 g/dl (32.0-35.9); MEAN CELL VOLUME 81.6 fl (80-96); MEAN PLT VOLUME 7.5 fl (7.5-11.1); MONO % 7.8 % (3.8-10.2); NEUT % 75.8 % (42.8-82.8); PLATELET COUNT 350 10^3/uL (134-434); RDW 26.2 % (11.9-15.9); WHITE BLOOD COUNT 9.6 K/mm3 (4.0-10.0)
[2023-09-22 08:14] LABS: POTASSIUM 4.3 mmol/L (3.5-5.1)
[2023-09-22 08:20] LABS: ALBUMIN 1.5 g/dl (3.4-5.0); BLOOD UREA NITROGEN 9.9 mg/dL (7-18); CALCIUM 7.9 mg/dL (8.5-10.1)
[2023-09-22 08:22] LABS: CREATININE 0.3 mg/dL (0.55-1.3)
[2023-09-22 08:23] LABS: BILIRUBIN,TOTAL 0.2 mg/dL (0.2-1); TOT PROT 4.7 g/dl (6.4-8.2)
[2023-09-22] MEDS ORDERED: morphine CARPU-JECT 2 MG/1 ML DISP.SYRIN IM ONE (10:34)
[2023-09-22] MEDS: AMINO ACIDS/PROTEIN HYDROLYS 30 ML LIQUID.PKT PO SCH ×3 (10:56→16:57)
[2023-09-22] MEDS: MIDODRINE HCL 5 MG TABLET PO SCH ×3 (10:56→17:00)
[2023-09-22] MEDS: CARBAMIDE PEROXIDE 6.5% OTIC 15 ML BOTTLE AU SCH ×2 (10:57→23:09)
[2023-09-22] MEDS: PANTOPRAZOLE 40 MG TABLET PO SCH (10:57)
[2023-09-22] MEDS: POVIDONE-IODINE 10% SOLN 118 ML BOTTLE TP SCH (10:58)
[2023-09-22] MEDS: DOXYCYCLINE INJECTION 100 MG in DEXTROSE 5%-WATER 100 ML IVPB SCH ×2 (10:58→21:17)
[2023-09-22] MEDS: MULTIVITAMINS THER W-MINERALS COMBO TABLET (FP) PO SCH (10:58)
[2023-09-22] MEDS ORDERED: SODIUM CHLORIDE 1,000 ML IV SCH (13:15)
[2023-09-22] MEDS: KETOROLAC TROMETHAMINE 15 MG/ML VIAL IM PRN ×2 (15:57→21:19)
[2023-09-22] MEDS: LIDOCAINE VISCOUS 2% ORAL/TOP 15 ML UNIT-DOSE CUP MM ONE ×2 (15:58→17:41)
[2023-09-22] MEDS: DAPTOMYCIN 500 MG in SODIUM CHLORIDE 50 ML IVPB SCH (15:58)
[2023-09-22] MEDS: AMINO ACIDS 4.25%/D5W 1,000 ML IV SCH (15:58)
[2023-09-22] MEDS: MIRTAZAPINE 15 MG TABLET (FP) PO SCH (21:17)
[2023-09-23] MEDS: MAG HYDROX/AL HYDROX/SIMETH 30 ML UNIT-DOSE CUP PO SCH ×5 (00:17→23:24)
[2023-09-23] MEDS: VANCOMYCIN ORAL SOLUTION 125 MG/2.5 ML PO SCH ×5 (00:17→23:13)
[2023-09-23] MEDS: NYSTATIN 500,000 UNITS/5 ML SUSPENSION PO SCH ×5 (00:17→23:09)
[2023-09-23] MEDS: MEROPENEM 1 GM in DEXTROSE 5%-WATER 100 ML IVPB SCH ×3 (01:55→17:22)
[2023-09-23] MEDS: KETOROLAC TROMETHAMINE 15 MG/ML VIAL IM PRN ×2 (04:03→10:11)
[2023-09-23] MEDS: ACETAMINOPHEN 325 MG TABLET (FP) PO PRN (06:23)
[2023-09-23 08:15] LABS: BASO % 0.6 % (0-2.0); EOS % 0.5 % (0-4.5); HEMATOCRIT 24.8 % (35.4-49); HEMOGLOBIN 7.6 GM/dL (11.7-16.9); LYMPH % 8.9 % (8-40); MCH 25.2 pg (25.7-33.7); MCHC 30.7 g/dl (32.0-35.9); MEAN CELL VOLUME 82.1 fl (80-96); MEAN PLT VOLUME 7.8 fl (7.5-11.1); MONO % 6.4 % (3.8-10.2); NEUT % 83.6 % (42.8-82.8); PLATELET COUNT 375 10^3/uL (134-434); RBC 3.02 M/mm3 (4.00-5.60); RDW 25.5 % (11.9-15.9); WHITE BLOOD COUNT 11.6 K/mm3 (4.0-10.0)
[2023-09-23 08:35] LABS: CALCIUM 7.9 mg/dL (8.5-10.1)
[2023-09-23 08:36] LABS: ALBUMIN 1.7 g/dl (3.4-5.0)
[2023-09-23 08:39] LABS: CREATININE 0.4 mg/dL (0.55-1.3)
[2023-09-23 08:40] LABS: BILIRUBIN,TOTAL 0.7 mg/dL (0.2-1); TOT PROT 5.3 g/dl (6.4-8.2)
[2023-09-23] MEDS: AMINO ACIDS/PROTEIN HYDROLYS 30 ML LIQUID.PKT PO SCH ×3 (09:19→17:22)
[2023-09-23 09:54] LABS: ANISOCYTOSIS 2+; MACROCYTOSIS 0
[2023-09-23] MEDS: POVIDONE-IODINE 10% SOLN 118 ML BOTTLE TP SCH (09:58)
[2023-09-23] MEDS: CARBAMIDE PEROXIDE 6.5% OTIC 15 ML BOTTLE AU SCH ×2 (09:59→23:20)
[2023-09-23] MEDS: PANTOPRAZOLE 40 MG TABLET PO SCH (10:02)
[2023-09-23] MEDS: MULTIVITAMINS THER W-MINERALS COMBO TABLET (FP) PO SCH (10:02)
[2023-09-23] MEDS: MIDODRINE HCL 5 MG TABLET PO SCH ×3 (10:02→17:23)
[2023-09-23] MEDS: DOXYCYCLINE INJECTION 100 MG in DEXTROSE 5%-WATER 100 ML IVPB SCH ×2 (10:40→23:00)
[2023-09-23] MEDS: AMINO ACIDS 4.25%/D5W 1,000 ML IV SCH ×3 (11:40→23:09)
[2023-09-23] MEDS: DAPTOMYCIN 500 MG in SODIUM CHLORIDE 50 ML IVPB SCH (16:47)
[2023-09-23] MEDS: KETOROLAC TROMETHAMINE 15 MG/ML VIAL IVPUSH PRN ×2 (17:37→23:17)
[2023-09-23] MEDS: MIRTAZAPINE 15 MG TABLET (FP) PO SCH (23:09)
[2023-09-24] MEDS: ACETAMINOPHEN 325 MG TABLET (FP) PO PRN (00:13)
[2023-09-24] MEDS: MEROPENEM 1 GM in DEXTROSE 5%-WATER 100 ML IVPB SCH ×3 (01:19→18:04)
[2023-09-24] MEDS: NYSTATIN 500,000 UNITS/5 ML SUSPENSION PO SCH ×3 (06:44→17:31)
[2023-09-24] MEDS: VANCOMYCIN ORAL SOLUTION 125 MG/2.5 ML PO SCH ×3 (06:44→18:05)
[2023-09-24] MEDS: MAG HYDROX/AL HYDROX/SIMETH 30 ML UNIT-DOSE CUP PO SCH ×2 (06:44→12:28)
[2023-09-24] MEDS: KETOROLAC TROMETHAMINE 15 MG/ML VIAL IVPUSH PRN (06:45)
[2023-09-24 08:21] LABS: HEMATOCRIT 26.9 % (35.4-49); HEMOGLOBIN 8.4 GM/dL (11.7-16.9); MCHC 31.1 g/dl (32.0-35.9); MEAN CELL VOLUME 83.7 fl (80-96); MEAN PLT VOLUME 8.3 fl (7.5-11.1); PLATELET COUNT 310 10^3/uL (134-434); RBC 3.22 M/mm3 (4.00-5.60); RDW 26.1 % (11.9-15.9)
[2023-09-24] MEDS: AMINO ACIDS/PROTEIN HYDROLYS 30 ML LIQUID.PKT PO SCH ×3 (11:41→16:41)
[2023-09-24] MEDS: POVIDONE-IODINE 10% SOLN 118 ML BOTTLE TP SCH (12:25)
[2023-09-24] MEDS: CARBAMIDE PEROXIDE 6.5% OTIC 15 ML BOTTLE AU SCH ×3 (12:25→23:43)
[2023-09-24] MEDS: PANTOPRAZOLE 40 MG TABLET PO SCH (12:26)
[2023-09-24] MEDS: MULTIVITAMINS THER W-MINERALS COMBO TABLET (FP) PO SCH (12:27)
[2023-09-24] MEDS: MIDODRINE HCL 5 MG TABLET PO SCH ×3 (12:27→17:31)
[2023-09-24] MEDS: DOXYCYCLINE INJECTION 100 MG in DEXTROSE 5%-WATER 100 ML IVPB SCH ×2 (12:27→21:31)
[2023-09-24] MEDS: AMINO ACIDS 4.25%/D5W 1,000 ML IV SCH ×2 (12:27→23:04)
[2023-09-24] MEDS ORDERED: LACTATED RINGERS SOLUTION 1,000 ML/1,000 ML INFUS.BAG IV STA (12:30)
[2023-09-24] MEDS: PROPOFOL 1,000,000 MCG/100 ML VIAL IVPB SCH ×2 (13:01→23:13)
[2023-09-24] MEDS ORDERED: DEXMEDETOMIDINE PREMIX 400 MCG/100 ML BAG IVPB ONE (13:05)
[2023-09-24] MEDS: DEXMEDETOMIDINE PREMIX 400 MCG/100 ML BAG IVPB SCH ×2 (13:15→23:14)
[2023-09-24] MEDS ORDERED: FENTANYL NS IVPB 500 MCG/100 ML BAG IVPB ONE (14:02)
[2023-09-24] MEDS: ENOXAPARIN NA (PORCINE) 40 MG/0.4 ML DISP.SYRIN SQ SCH (14:30)
[2023-09-24] MEDS: LACTATED RINGERS SOLUTION 1,000 ML/1,000 ML INFUS.BAG IV SCH (14:42)
[2023-09-24 15:27] LABS: COCAINE, UR NEGATIVE (NEGATIVE); URINE AMPHETAMINES NEGATIVE (NEGATIVE)
[2023-09-24 15:28] LABS: METHADONE, UR NEGATIVE (NEGATIVE); PHENCYCLIDINE,URINE NEGATIVE (NEGATIVE); URINE BARBITURATES NEGATIVE (NEGATIVE); URINE BENZODIAZEPINES NEGATIVE (NEGATIVE)
[2023-09-24] MEDS: MIDAZOLAM HCL 2 MG/2 ML SINGLE DOSE VIAL IVPUSH PRN (15:28)
[2023-09-24 15:29] LABS: OPIATES, URI POSITIVE (NEGATIVE)
[2023-09-24] MEDS ORDERED: MIDAZOLAM HCL 2 MG/2 ML SINGLE DOSE VIAL ONE (15:33)
[2023-09-24] MEDS: FENTANYL NS IVPB 500 MCG/100 ML BAG IVPB SCH (15:45)
[2023-09-24] MEDS ORDERED: MIDAZOLAM HCL 2 MG/2 ML SINGLE DOSE VIAL IVPUSH PRN (16:00)
[2023-09-24] MEDS: NOREPINEPHRINE BITARTRATE/D5W 8 MG/250 ML BAG IVPB SCH (17:27)
[2023-09-24] MEDS: DAPTOMYCIN 500 MG in SODIUM CHLORIDE 50 ML IVPB SCH (17:28)
[2023-09-24 17:40] LABS: BASO % 0.4 % (0-2.0); HEMATOCRIT 17.3 % (35.4-49); LYMPH % 21.7 % (8-40); MCH 25.8 pg (25.7-33.7); MCHC 31.8 g/dl (32.0-35.9); MEAN CELL VOLUME 81.1 fl (80-96); MEAN PLT VOLUME 7.3 fl (7.5-11.1); MONO % 7.9 % (3.8-10.2); PLATELET COUNT 231 10^3/uL (134-434); RBC 2.14 M/mm3 (4.00-5.60); RDW 25.7 % (11.9-15.9); WHITE BLOOD COUNT 6.1 K/mm3 (4.0-10.0)
[2023-09-24 17:49] LABS: HEMOGLOBIN 5.5 GM/dL (11.7-16.9)
[2023-09-24 17:57] LABS: POTASSIUM 3.4 mmol/L (3.5-5.1)
[2023-09-24 17:59] LABS: CALCIUM 7.4 mg/dL (8.5-10.1); MAGNESIUM 1.9 mg/dL (1.8-2.4)
[2023-09-24 18:02] LABS: CREATININE 0.2 mg/dL (0.55-1.3)
[2023-09-24 18:03] LABS: PHOSPHOROUS 2.4 mg/dL (2.5-4.9)
[2023-09-24 18:04] LABS: BILIRUBIN,TOTAL 0.3 mg/dL (0.2-1); TOT PROT 4.2 g/dl (6.4-8.2)
[2023-09-24 18:34] LABS: ALBUMIN 1.3 g/dl (3.4-5.0)
[2023-09-24 18:59] LABS: HEMOGLOBIN 7.7 GM/dL (11.7-16.9); MCH 25.8 pg (25.7-33.7); MEAN CELL VOLUME 80.7 fl (80-96); MEAN PLT VOLUME 7.7 fl (7.5-11.1); PLATELET COUNT 333 10^3/uL (134-434); RBC 2.97 M/mm3 (4.00-5.60); RDW 25.8 % (11.9-15.9); WHITE BLOOD COUNT 9.4 K/mm3 (4.0-10.0)
[2023-09-24] MEDS ORDERED: SODIUM PHOSPHATE - 15 MM in SODIUM CHLORIDE 250 ML IVPB ONE (19:00)
[2023-09-24] MEDS ORDERED: KCL 10 MEQ IVPB 10 MEQ/100 ML INFUS.BAG IVPB SCH (20:00)
[2023-09-24] MEDS: KCL 10 MEQ IVPB 10 MEQ/100 ML INFUS.BAG IVPB SCH ×3 (20:07→21:50)
[2023-09-24] MEDS: CHLORHEXIDINE GLUCONATE 4% CLEANSER FOR DECOLONIZATION TP SCH (21:09)
[2023-09-24] MEDS: MUPIROCIN 2% TOPICAL OINTMENT FOR DECOLONIZATION NS SCH ×2 (21:29→21:43)
[2023-09-24] MEDS: MIRTAZAPINE 15 MG TABLET (FP) PO SCH (21:31)
[2023-09-25] MEDS: FENTANYL NS IVPB 500 MCG/100 ML BAG IVPB SCH ×2 (00:08→05:41)
[2023-09-25] MEDS: NYSTATIN 500,000 UNITS/5 ML SUSPENSION PO SCH ×3 (00:08→12:36)
[2023-09-25] MEDS: VANCOMYCIN ORAL SOLUTION 125 MG/2.5 ML PO SCH ×3 (00:08→12:45)
[2023-09-25] MEDS: MEROPENEM 1 GM in DEXTROSE 5%-WATER 100 ML IVPB SCH ×2 (02:41→09:46)
[2023-09-25 07:23] LABS: RBC 2.72 M/mm3 (4.00-5.60); WHITE BLOOD COUNT 7.6 K/mm3 (4.0-10.0)
[2023-09-25 07:24] LABS: BASO % 1.2 % (0-2.0); EOS % 2.1 % (0-4.5); HEMATOCRIT 22.8 % (35.4-49); LYMPH % 24.5 % (8-40); MCH 25.9 pg (25.7-33.7); MCHC 30.9 g/dl (32.0-35.9); MEAN CELL VOLUME 83.8 fl (80-96); MEAN PLT VOLUME 7.2 fl (7.5-11.1); MONO % 7.2 % (3.8-10.2); PLATELET COUNT 210 10^3/uL (134-434); RDW 25.6 % (11.9-15.9)
[2023-09-25 07:44] LABS: POTASSIUM 4.1 mmol/L (3.5-5.1)
[2023-09-25 07:45] LABS: CALCIUM 7.3 mg/dL (8.5-10.1)
[2023-09-25 07:46] LABS: ALBUMIN 1.3 g/dl (3.4-5.0); BLOOD UREA NITROGEN 13.9 mg/dL (7-18); MAGNESIUM 1.7 mg/dL (1.8-2.4)
[2023-09-25 07:49] LABS: CREATININE 0.4 mg/dL (0.55-1.3)
[2023-09-25 07:50] LABS: BILIRUBIN,TOTAL 0.2 mg/dL (0.2-1); TOT PROT 4.5 g/dl (6.4-8.2)
[2023-09-25] MEDS ORDERED: MAGNESIUM 2GM/50ML STERILE WATER IVPB IVPB ONE (08:03)
[2023-09-25] MEDS: DEXMEDETOMIDINE PREMIX 400 MCG/100 ML BAG IVPB SCH ×3 (08:45→21:00)
[2023-09-25] MEDS: AMINO ACIDS/PROTEIN HYDROLYS 30 ML LIQUID.PKT PO SCH ×2 (09:32→12:36)
[2023-09-25] MEDS: MIDODRINE HCL 5 MG TABLET PO SCH ×2 (09:46→15:06)
[2023-09-25] MEDS: DOXYCYCLINE INJECTION 100 MG in DEXTROSE 5%-WATER 100 ML IVPB SCH ×2 (09:46→21:16)
[2023-09-25] MEDS: MUPIROCIN 2% TOPICAL OINTMENT FOR DECOLONIZATION NS SCH ×2 (09:46→21:10)
[2023-09-25] MEDS: MULTIVITAMINS THER W-MINERALS COMBO TABLET (FP) PO SCH (09:46)
[2023-09-25] MEDS: PANTOPRAZOLE 40 MG TABLET PO SCH (09:46)
[2023-09-25] MEDS: CARBAMIDE PEROXIDE 6.5% OTIC 15 ML BOTTLE AU SCH ×2 (09:47→21:10)
[2023-09-25] MEDS: POVIDONE-IODINE 10% SOLN 118 ML BOTTLE TP SCH (09:47)
[2023-09-25] MEDS ORDERED: ENOXAPARIN NA (PORCINE) 40 MG/0.4 ML DISP.SYRIN SQ SCH (10:00)
[2023-09-25] MEDS ORDERED: ACETAMINOPHEN 1000 MG/100 ML BAG IVPB PRN (10:52)
[2023-09-25] MEDS ORDERED: HYDROmorphone HCL 2 MG TABLET PO ONE (11:46)
[2023-09-25] MEDS ORDERED: HYDROmorphone HCl 2 MG/ML VIAL ONE ×2 (11:50→17:29)
[2023-09-25] MEDS ORDERED: MIDAZOLAM HCL 5 MG/1 ML Single Dose Vial ONE (11:53)
[2023-09-25] MEDS: MIDAZOLAM HCL 2 MG/2 ML SINGLE DOSE VIAL IVPUSH PRN (12:00)
[2023-09-25] MEDS ORDERED: HYDROmorphone HCl 2 MG/ML VIAL IVPUSH ONE (12:15)
[2023-09-25] MEDS: PROPOFOL 1,000,000 MCG/100 ML VIAL IVPB SCH (13:50)
[2023-09-25] MEDS: AMINO ACIDS 4.25%/D5W 1,000 ML IV SCH (14:11)
[2023-09-25] MEDS: LACTATED RINGERS SOLUTION 1,000 ML/1,000 ML INFUS.BAG IV SCH (15:06)
[2023-09-25] MEDS ORDERED: DEXAMETHASONE SOD PHOSPHATE 4 MG/1 ML VIAL ONE (15:58)
[2023-09-25] MEDS ORDERED: FENTANYL CITRATE/PF 50 MCG/ML VIAL ONE ×4 (15:58→20:02)
[2023-09-25] MEDS ORDERED: PROPOFOL 20 ML ONE (15:58)
[2023-09-25] MEDS ORDERED: ROCURONIUM BROMIDE 50 MG/5 ML SYRINGE ONE (15:58)
[2023-09-25] MEDS ORDERED: MIDAZOLAM HCL 2 MG/2 ML SINGLE DOSE VIAL ONE (15:58)
[2023-09-25] MEDS ORDERED: SEVOFLURANE 250 ML BTL ONE ×2 (15:59→18:03)
[2023-09-25] MEDS ORDERED: ALBUMIN HUMAN 5% 250 ML IV SOLUTION IV ONE (16:15)
[2023-09-25] MEDS: DAPTOMYCIN 500 MG in SODIUM CHLORIDE 50 ML IVPB SCH (16:31)
[2023-09-25] MEDS ORDERED: KETAMINE HCL 200 MG/20 ML VIAL ONE (16:35)
[2023-09-25] MEDS ORDERED: MEROPENEM 1 GM VIAL (RESTRICTED TO ID) IVPB ONE ×2 (17:32→17:38)
[2023-09-25] MEDS ORDERED: ONDANSETRON 4 MG/2 ML VIAL ONE (19:38)
[2023-09-25] MEDS ORDERED: SUGAMMADEX SODIUM 200 MG/2 ML VIAL ONE (19:49)
[2023-09-25] MEDS ORDERED: PROMETHAZINE HCL 25 MG/1 ML VIAL IVPB PRN (20:27)
[2023-09-25] MEDS ORDERED: ONDANSETRON 4 MG/2 ML VIAL IVPUSH PRN (20:27)
[2023-09-25] MEDS ORDERED: HYDROmorphone *PCA* 10MG/50ML DISP.SYRIN PCA SCH (20:30)
[2023-09-25] MEDS ORDERED: HYDROmorphone HCl 2 MG/ML VIAL IVPUSH PRN (20:30)
[2023-09-25] MEDS: CHLORHEXIDINE GLUCONATE 4% CLEANSER FOR DECOLONIZATION TP SCH (21:10)
[2023-09-25] MEDS: NYSTATIN 100,000 UNIT/GM TOPICAL CREAM 15 GM TUBE TP SCH (21:11)
[2023-09-25] MEDS: MIRTAZAPINE 15 MG TABLET (FP) PO SCH (21:11)
[2023-09-25] MEDS: HYDROmorphone HCl 2 MG/ML VIAL IVPUSH PRN (23:58)
[2023-09-26] MEDS: VANCOMYCIN ORAL SOLUTION 125 MG/2.5 ML PO SCH ×3 (01:00→14:24)
[2023-09-26] MEDS: NYSTATIN 500,000 UNITS/5 ML SUSPENSION PO SCH ×3 (01:00→13:00)
[2023-09-26 01:39] LABS: HEMATOCRIT 23.2 % (35.4-49); HEMOGLOBIN 7.2 GM/dL (11.7-16.9); MCH 25.3 pg (25.7-33.7); MCHC 30.8 g/dl (32.0-35.9); MEAN PLT VOLUME 7.8 fl (7.5-11.1); PLATELET COUNT 273 10^3/uL (134-434); RBC 2.83 M/mm3 (4.00-5.60); RDW 24.3 % (11.9-15.9); WHITE BLOOD COUNT 10.8 K/mm3 (4.0-10.0)
[2023-09-26] MEDS: DEXMEDETOMIDINE PREMIX 400 MCG/100 ML BAG IVPB SCH ×2 (01:53→21:15)
[2023-09-26] MEDS: MEROPENEM 1 GM in DEXTROSE 5%-WATER 100 ML IVPB SCH ×4 (01:53→17:48)
[2023-09-26 02:19] LABS: POTASSIUM 4.1 mmol/L (3.5-5.1)
[2023-09-26 02:25] LABS: CALCIUM 7.7 mg/dL (8.5-10.1)
[2023-09-26 02:26] LABS: MAGNESIUM 2.2 mg/dL (1.8-2.4)
[2023-09-26 02:29] LABS: CREATININE 0.3 mg/dL (0.55-1.3); PHOSPHOROUS 4.3 mg/dL (2.5-4.9)
[2023-09-26 02:31] LABS: BILIRUBIN,TOTAL 0.6 mg/dL (0.2-1); TOT PROT 4.9 g/dl (6.4-8.2)
[2023-09-26 02:43] LABS: ALBUMIN 1.9 g/dl (3.4-5.0)
[2023-09-26 03:56] LABS: ANISOCYTOSIS 2+; OVALOCYTE 2+; TEAR DROP CELLS 2+
[2023-09-26] MEDS: NOREPINEPHRINE BITARTRATE/D5W 8 MG/250 ML BAG IVPB SCH ×2 (04:11→10:36)
[2023-09-26] MEDS: HYDROmorphone HCl 2 MG/ML VIAL IVPUSH PRN ×4 (04:12→19:25)
[2023-09-26 06:35] LABS: HEMATOCRIT 19.9 % (35.4-49); MCHC 31.7 g/dl (32.0-35.9); MEAN CELL VOLUME 81.9 fl (80-96); MEAN PLT VOLUME 7.5 fl (7.5-11.1); PLATELET COUNT 248 10^3/uL (134-434); RBC 2.43 M/mm3 (4.00-5.60); RDW 24.1 % (11.9-15.9); WHITE BLOOD COUNT 8.9 K/mm3 (4.0-10.0)
[2023-09-26 07:09] LABS: HEMOGLOBIN 6.3 GM/dL (11.7-16.9)
[2023-09-26] MEDS: CARBAMIDE PEROXIDE 6.5% OTIC 15 ML BOTTLE AU SCH ×2 (10:00→21:10)
[2023-09-26] MEDS: DOXYCYCLINE INJECTION 100 MG in DEXTROSE 5%-WATER 100 ML IVPB SCH ×2 (10:26→21:11)
[2023-09-26] MEDS: PANTOPRAZOLE SODIUM 40 MG VIAL IVPUSH SCH (10:26)
[2023-09-26] MEDS: POVIDONE-IODINE 10% SOLN 118 ML BOTTLE TP SCH (11:00)
[2023-09-26] MEDS: NYSTATIN 100,000 UNIT/GM TOPICAL CREAM 15 GM TUBE TP SCH ×2 (14:20→21:11)
[2023-09-26] MEDS: MUPIROCIN 2% TOPICAL OINTMENT FOR DECOLONIZATION NS SCH ×2 (14:22→21:09)
[2023-09-26] MEDS: ACETAMINOPHEN 1000 MG/100 ML BAG IVPB SCH ×3 (14:23→21:10)
[2023-09-26] MEDS: DAPTOMYCIN 500 MG in SODIUM CHLORIDE 50 ML IVPB SCH (16:01)
[2023-09-26] MEDS: LACTATED RINGERS SOLUTION 1,000 ML/1,000 ML INFUS.BAG IV SCH (17:00)
[2023-09-26] MEDS: AMINO ACIDS 4.25%/D5W 1,000 ML IV SCH (17:49)
[2023-09-26] MEDS: FAT EMULSION/OLIVE/SOY/PHOSPHO 250 ML IV SCH (21:09)
[2023-09-26] MEDS: CHLORHEXIDINE GLUCONATE 4% CLEANSER FOR DECOLONIZATION TP SCH (21:10)
[2023-09-26] MEDS: MIRTAZAPINE 15 MG TABLET (FP) PO SCH (21:11)
[2023-09-26 21:57] LABS: BASO % 0.1 % (0-2.0); EOS % 0.4 % (0-4.5); HEMATOCRIT 30.2 % (35.4-49); HEMOGLOBIN 9.4 GM/dL (11.7-16.9); LYMPH % 15.9 % (8-40); MCH 26.2 pg (25.7-33.7); MCHC 31.3 g/dl (32.0-35.9); MEAN CELL VOLUME 83.8 fl (80-96); MEAN PLT VOLUME 7.6 fl (7.5-11.1); MONO % 7.9 % (3.8-10.2); NEUT % 75.7 % (42.8-82.8); PLATELET COUNT 376 10^3/uL (134-434); RDW 21.1 % (11.9-15.9); WHITE BLOOD COUNT 10.5 K/mm3 (4.0-10.0)
[2023-09-26] MEDS ORDERED: FAT EMULSION/OLIVE/SOY (CLINOLIPID) 250 ML EMULSION IV SCH (22:00)
[2023-09-26 22:18] LABS: ANISOCYTOSIS 1+; MACROCYTOSIS 0
[2023-09-27] MEDS: VANCOMYCIN ORAL SOLUTION 125 MG/2.5 ML PO SCH ×5 (00:13→18:33)
[2023-09-27] MEDS: NYSTATIN 500,000 UNITS/5 ML SUSPENSION PO SCH ×5 (00:13→18:31)
[2023-09-27] MEDS: MEROPENEM 1 GM in DEXTROSE 5%-WATER 100 ML IVPB SCH ×3 (01:18→18:32)
[2023-09-27] MEDS: ACETAMINOPHEN 1000 MG/100 ML BAG IVPB SCH ×4 (02:26→20:29)
[2023-09-27] MEDS: HYDROmorphone HCl 2 MG/ML VIAL IVPUSH PRN ×8 (03:48→23:37)
[2023-09-27] MEDS: DEXMEDETOMIDINE PREMIX 400 MCG/100 ML BAG IVPB SCH (06:11)
[2023-09-27 06:14] LABS: HEMOGLOBIN 9.3 GM/dL (11.7-16.9); MCH 26.7 pg (25.7-33.7); MCHC 32.1 g/dl (32.0-35.9); MEAN CELL VOLUME 83.2 fl (80-96); MEAN PLT VOLUME 7.7 fl (7.5-11.1); PLATELET COUNT 363 10^3/uL (134-434); RBC 3.48 M/mm3 (4.00-5.60); RDW 20.9 % (11.9-15.9)
[2023-09-27 06:37] LABS: POTASSIUM 3.7 mmol/L (3.5-5.1)
[2023-09-27 06:42] LABS: ALBUMIN 1.6 g/dl (3.4-5.0); BLOOD UREA NITROGEN 9.2 mg/dL (7-18); CALCIUM 7.6 mg/dL (8.5-10.1); MAGNESIUM 1.9 mg/dL (1.8-2.4)
[2023-09-27 06:45] LABS: CREATININE 0.3 mg/dL (0.55-1.3)
[2023-09-27 06:46] LABS: PHOSPHOROUS 2.8 mg/dL (2.5-4.9)
[2023-09-27 06:47] LABS: BILIRUBIN,TOTAL 0.4 mg/dL (0.2-1); TOT PROT 4.7 g/dl (6.4-8.2)
[2023-09-27] MEDS: NOREPINEPHRINE BITARTRATE/D5W 8 MG/250 ML BAG IVPB SCH (08:53)
[2023-09-27] MEDS: MUPIROCIN 2% TOPICAL OINTMENT FOR DECOLONIZATION NS SCH ×2 (10:26→22:26)
[2023-09-27] MEDS: DOXYCYCLINE INJECTION 100 MG in DEXTROSE 5%-WATER 100 ML IVPB SCH ×2 (10:27→21:52)
[2023-09-27] MEDS: PANTOPRAZOLE SODIUM 40 MG VIAL IVPUSH SCH (10:27)
[2023-09-27] MEDS: KCL 10 MEQ IVPB 10 MEQ/100 ML INFUS.BAG IVPB SCH ×3 (10:31→12:22)
[2023-09-27] MEDS: NYSTATIN 100,000 UNIT/GM TOPICAL CREAM 15 GM TUBE TP SCH ×2 (11:12→22:27)
[2023-09-27] MEDS: CARBAMIDE PEROXIDE 6.5% OTIC 15 ML BOTTLE AU SCH ×2 (11:15→22:26)
[2023-09-27] MEDS ORDERED: HEPARIN NA (PORCINE) 5,000 UNITS/ML 1ML VIAL SQ SCH (11:15)
[2023-09-27] MEDS: POVIDONE-IODINE 10% SOLN 118 ML BOTTLE TP SCH (11:16)
[2023-09-27] MEDS: ENOXAPARIN NA (PORCINE) 40 MG/0.4 ML DISP.SYRIN SQ SCH (12:58)
[2023-09-27] MEDS: AMINO ACIDS 4.25%/D5W 1,000 ML IV SCH (12:59)
[2023-09-27] MEDS ORDERED: ALBUMIN HUMAN 5% 250 ML IV SOLUTION IV ONE (14:11)
[2023-09-27] MEDS ORDERED: ALBUTEROL SO4 2.5/IPRATROPIUM 0.5 INH SOL 3 ML VIAL.NEB. NEB PRN (14:11)
[2023-09-27] MEDS: DAPTOMYCIN 500 MG in SODIUM CHLORIDE 50 ML IVPB SCH (14:24)
[2023-09-27 21:26] LABS: HEMATOCRIT 28.1 % (35.4-49); HEMOGLOBIN 9.1 GM/dL (11.7-16.9); MCH 26.6 pg (25.7-33.7); MCHC 32.4 g/dl (32.0-35.9); MEAN CELL VOLUME 82.1 fl (80-96); MEAN PLT VOLUME 7.3 fl (7.5-11.1); PLATELET COUNT 296 10^3/uL (134-434); RBC 3.42 M/mm3 (4.00-5.60); RDW 21.2 % (11.9-15.9); WHITE BLOOD COUNT 8.5 K/mm3 (4.0-10.0)
[2023-09-27] MEDS: MIRTAZAPINE 15 MG TABLET (FP) PO SCH (21:52)
[2023-09-27] MEDS: FAT EMULSION/OLIVE/SOY/PHOSPHO 250 ML IV SCH (21:52)
[2023-09-27] MEDS: CHLORHEXIDINE GLUCONATE 4% CLEANSER FOR DECOLONIZATION TP SCH (21:52)
[2023-09-28] MEDS: HYDROmorphone HCl 2 MG/ML VIAL IVPUSH PRN ×10 (01:45→23:01)
[2023-09-28] MEDS: MEROPENEM 1 GM in DEXTROSE 5%-WATER 100 ML IVPB SCH ×3 (01:54→17:02)
[2023-09-28] MEDS: ACETAMINOPHEN 1000 MG/100 ML BAG IVPB SCH ×4 (02:02→21:49)
[2023-09-28] MEDS: NYSTATIN 500,000 UNITS/5 ML SUSPENSION PO SCH ×5 (02:14→23:00)
[2023-09-28] MEDS: VANCOMYCIN ORAL SOLUTION 125 MG/2.5 ML PO SCH ×6 (02:15→23:09)
[2023-09-28] MEDS: ENOXAPARIN NA (PORCINE) 40 MG/0.4 ML DISP.SYRIN SQ SCH (09:19)
[2023-09-28] MEDS: PANTOPRAZOLE SODIUM 40 MG VIAL IVPUSH SCH (09:19)
[2023-09-28] MEDS: DOXYCYCLINE INJECTION 100 MG in DEXTROSE 5%-WATER 100 ML IVPB SCH ×2 (09:24→21:00)
[2023-09-28] MEDS ORDERED: FENTANYL PATCH WASTE TD PRN (10:40)
[2023-09-28] MEDS: NYSTATIN 100,000 UNIT/GM TOPICAL CREAM 15 GM TUBE TP SCH ×2 (13:02→21:28)
[2023-09-28] MEDS: fentaNYL 50mcg/hr PATCH.TD72 TD SCH (13:02)
[2023-09-28] MEDS: MUPIROCIN 2% TOPICAL OINTMENT FOR DECOLONIZATION NS SCH ×2 (13:05→21:28)
[2023-09-28] MEDS: DAPTOMYCIN 500 MG in SODIUM CHLORIDE 50 ML IVPB SCH (14:57)
[2023-09-28] MEDS: LACTATED RINGERS SOLUTION 1,000 ML/1,000 ML INFUS.BAG IV SCH (14:58)
[2023-09-28] MEDS: AMINO ACIDS 4.25%/D5W 1,000 ML IV SCH (14:58)
[2023-09-28] MEDS: POVIDONE-IODINE 10% SOLN 118 ML BOTTLE TP SCH (15:08)
[2023-09-28 16:31] LABS: POTASSIUM 3.2 mmol/L (3.5-5.1)
[2023-09-28 16:35] LABS: ALBUMIN 1.6 g/dl (3.4-5.0); BLOOD UREA NITROGEN 14.3 mg/dL (7-18); CALCIUM 8.1 mg/dL (8.5-10.1); MAGNESIUM 1.7 mg/dL (1.8-2.4)
[2023-09-28 16:38] LABS: CREATININE 0.3 mg/dL (0.55-1.3); PHOSPHOROUS 2.8 mg/dL (2.5-4.9)
[2023-09-28 16:39] LABS: BILIRUBIN,TOTAL 0.5 mg/dL (0.2-1)
[2023-09-28 16:40] LABS: TOT PROT 4.8 g/dl (6.4-8.2)
[2023-09-28 20:59] LABS: HEMATOCRIT 27.9 % (35.4-49); MCH 26.7 pg (25.7-33.7); MCHC 32.3 g/dl (32.0-35.9); MEAN CELL VOLUME 82.7 fl (80-96); MEAN PLT VOLUME 7.6 fl (7.5-11.1); PLATELET COUNT 315 10^3/uL (134-434); RBC 3.37 M/mm3 (4.00-5.60); RDW 21.4 % (11.9-15.9); WHITE BLOOD COUNT 6.4 K/mm3 (4.0-10.0)
[2023-09-28] MEDS: FAT EMULSION/OLIVE/SOY/PHOSPHO 250 ML IV SCH (21:01)
[2023-09-28] MEDS: CARBAMIDE PEROXIDE 6.5% OTIC 15 ML BOTTLE AU SCH (21:28)
[2023-09-28] MEDS: CHLORHEXIDINE GLUCONATE 4% CLEANSER FOR DECOLONIZATION TP SCH (21:28)
[2023-09-28] MEDS: MIRTAZAPINE 15 MG TABLET (FP) PO SCH (21:29)
[2023-09-29] MEDS: MEROPENEM 1 GM in DEXTROSE 5%-WATER 100 ML IVPB SCH ×3 (01:01→17:55)
[2023-09-29] MEDS: HYDROmorphone HCl 2 MG/ML VIAL IVPUSH PRN ×10 (01:01→22:33)
[2023-09-29] MEDS: ACETAMINOPHEN 1000 MG/100 ML BAG IVPB SCH (05:11)
[2023-09-29] MEDS: NYSTATIN 500,000 UNITS/5 ML SUSPENSION PO SCH ×3 (06:42→17:55)
[2023-09-29] MEDS: VANCOMYCIN ORAL SOLUTION 125 MG/2.5 ML PO SCH ×3 (06:42→17:55)
[2023-09-29 07:27] LABS: HEMATOCRIT 25.7 % (35.4-49); HEMOGLOBIN 8.3 GM/dL (11.7-16.9); MCHC 32.5 g/dl (32.0-35.9); MEAN PLT VOLUME 7.4 fl (7.5-11.1); PLATELET COUNT 296 10^3/uL (134-434); RBC 3.09 M/mm3 (4.00-5.60); WHITE BLOOD COUNT 5.5 K/mm3 (4.0-10.0)
[2023-09-29 07:56] LABS: POTASSIUM 3.1 mmol/L (3.5-5.1)
[2023-09-29] MEDS: CARBAMIDE PEROXIDE 6.5% OTIC 15 ML BOTTLE AU SCH ×3 (08:02→21:43)
[2023-09-29 08:10] LABS: ALBUMIN 1.5 g/dl (3.4-5.0); CALCIUM 7.8 mg/dL (8.5-10.1)
[2023-09-29 08:11] LABS: BLOOD UREA NITROGEN 13.9 mg/dL (7-18); MAGNESIUM 1.6 mg/dL (1.8-2.4)
[2023-09-29 08:14] LABS: CREATININE 0.2 mg/dL (0.55-1.3); PHOSPHOROUS 3.4 mg/dL (2.5-4.9)
[2023-09-29 08:16] LABS: BILIRUBIN,TOTAL 0.3 mg/dL (0.2-1); TOT PROT 4.4 g/dl (6.4-8.2)
[2023-09-29] MEDS ORDERED: MAGNESIUM SULF 50% (8.12 MEQ/2 ML-1 GM VIAL) IVPB ONE (08:45)
[2023-09-29] MEDS: PANTOPRAZOLE SODIUM 40 MG VIAL IVPUSH SCH (09:13)
[2023-09-29] MEDS: ENOXAPARIN NA (PORCINE) 40 MG/0.4 ML DISP.SYRIN SQ SCH (09:13)
[2023-09-29] MEDS: DOXYCYCLINE INJECTION 100 MG in DEXTROSE 5%-WATER 100 ML IVPB SCH ×2 (09:13→21:43)
[2023-09-29] MEDS: KCL 20 MEQ PREMIX BAG 100 ML IVPB SCH ×2 (09:29→11:18)
[2023-09-29] MEDS: MUPIROCIN 2% TOPICAL OINTMENT FOR DECOLONIZATION NS SCH (11:17)
[2023-09-29] MEDS: POVIDONE-IODINE 10% SOLN 118 ML BOTTLE TP SCH (11:17)
[2023-09-29] MEDS: NYSTATIN 100,000 UNIT/GM TOPICAL CREAM 15 GM TUBE TP SCH ×2 (11:17→21:43)
[2023-09-29] MEDS: DAPTOMYCIN 500 MG in SODIUM CHLORIDE 50 ML IVPB SCH (14:32)
[2023-09-29] MEDS: AMINO ACIDS 4.25%/D5W 1,000 ML IV SCH (14:33)
[2023-09-29] MEDS: LACTATED RINGERS SOLUTION 1,000 ML/1,000 ML INFUS.BAG IV SCH (17:03)
[2023-09-29] MEDS: FAT EMULSION/OLIVE/SOY/PHOSPHO 250 ML IV SCH (21:42)
[2023-09-29] MEDS: CHLORHEXIDINE GLUCONATE 4% CLEANSER FOR DECOLONIZATION TP SCH (21:43)
[2023-09-29] MEDS: MIRTAZAPINE 15 MG TABLET (FP) PO SCH (21:43)
[2023-09-30] MEDS: HYDROmorphone HCl 2 MG/ML VIAL IVPUSH PRN ×8 (00:50→22:30)
[2023-09-30] MEDS: NYSTATIN 500,000 UNITS/5 ML SUSPENSION PO SCH ×4 (01:05→18:26)
[2023-09-30] MEDS: VANCOMYCIN ORAL SOLUTION 125 MG/2.5 ML PO SCH ×4 (01:06→18:26)
[2023-09-30] MEDS: MEROPENEM 1 GM in DEXTROSE 5%-WATER 100 ML IVPB SCH ×3 (01:09→18:26)
[2023-09-30 07:48] LABS: HEMATOCRIT 27.3 % (35.4-49); HEMOGLOBIN 8.7 GM/dL (11.7-16.9); MCH 26.9 pg (25.7-33.7); MCHC 31.9 g/dl (32.0-35.9); MEAN CELL VOLUME 84.3 fl (80-96); MEAN PLT VOLUME 7.3 fl (7.5-11.1); PLATELET COUNT 322 10^3/uL (134-434); RBC 3.24 M/mm3 (4.00-5.60); RDW 20.6 % (11.9-15.9); WHITE BLOOD COUNT 4.5 K/mm3 (4.0-10.0)
[2023-09-30 08:15] LABS: CHLORIDE 106 mmol/L (98-107); POTASSIUM 3.4 mmol/L (3.5-5.1); SODIUM 138 mmol/L (136-145)
[2023-09-30 08:18] LABS: ALBUMIN 1.5 g/dl (3.4-5.0); ANION GAP 6 mmol/L (4-13); CALCIUM 7.9 mg/dL (8.5-10.1); CO2 26 mmol/L (21-32); GLUCOSE,RANDOM 96 mg/dL (74-106)
[2023-09-30 08:20] LABS: MAGNESIUM 1.8 mg/dL (1.8-2.4)
[2023-09-30 08:21] LABS: CREATININE 0.2 mg/dL (0.55-1.3); SGOT/AST 6 U/L (15-37); SGPT/ALT < 6 U/L (13-61)
[2023-09-30 08:23] LABS: BILIRUBIN,TOTAL 0.3 mg/dL (0.2-1); TOT PROT 4.4 g/dl (6.4-8.2)
[2023-09-30 08:24] LABS: ALK PHOS 145 U/L (45-117)
[2023-09-30] MEDS: CARBAMIDE PEROXIDE 6.5% OTIC 15 ML BOTTLE AU SCH ×2 (10:00→22:01)
[2023-09-30] MEDS: DOXYCYCLINE INJECTION 100 MG in DEXTROSE 5%-WATER 100 ML IVPB SCH ×2 (11:57→22:02)
[2023-09-30] MEDS: POVIDONE-IODINE 10% SOLN 118 ML BOTTLE TP SCH (11:57)
[2023-09-30] MEDS: ENOXAPARIN NA (PORCINE) 40 MG/0.4 ML DISP.SYRIN SQ SCH (11:57)
[2023-09-30] MEDS: NYSTATIN 100,000 UNIT/GM TOPICAL CREAM 15 GM TUBE TP SCH ×2 (12:43→22:01)
[2023-09-30] MEDS: PANTOPRAZOLE SODIUM 40 MG VIAL IVPUSH SCH (12:43)
[2023-09-30] MEDS: LACTATED RINGERS SOLUTION 1,000 ML/1,000 ML INFUS.BAG IV SCH (14:45)
[2023-09-30] MEDS: AMINO ACIDS 4.25%/D5W 1,000 ML IV SCH (14:45)
[2023-09-30] MEDS: DAPTOMYCIN 500 MG in SODIUM CHLORIDE 50 ML IVPB SCH (14:45)
[2023-09-30] MEDS: FAT EMULSION/OLIVE/SOY/PHOSPHO 250 ML IV SCH (22:00)
[2023-09-30] MEDS: MIRTAZAPINE 15 MG TABLET (FP) PO SCH (22:01)
[2023-09-30] MEDS: CHLORHEXIDINE GLUCONATE 4% CLEANSER FOR DECOLONIZATION TP SCH (22:01)
[2023-10-01] MEDS: VANCOMYCIN ORAL SOLUTION 125 MG/2.5 ML PO SCH ×5 (00:25→23:51)
[2023-10-01] MEDS: NYSTATIN 500,000 UNITS/5 ML SUSPENSION PO SCH ×4 (01:00→18:20)
[2023-10-01] MEDS: MEROPENEM 1 GM in DEXTROSE 5%-WATER 100 ML IVPB SCH ×3 (01:06→17:46)
[2023-10-01] MEDS: HYDROmorphone HCl 2 MG/ML VIAL IVPUSH PRN ×11 (01:18→23:21)
[2023-10-01 07:03] LABS: BASO % 0.6 % (0-2.0); EOS % 5.2 % (0-4.5); HEMATOCRIT 27.2 % (35.4-49); HEMOGLOBIN 8.8 GM/dL (11.7-16.9); LYMPH % 23.2 % (8-40); MCH 27.5 pg (25.7-33.7); MCHC 32.4 g/dl (32.0-35.9); MEAN CELL VOLUME 84.9 fl (80-96); MEAN PLT VOLUME 7.5 fl (7.5-11.1); MONO % 11.9 % (3.8-10.2); NEUT % 59.1 % (42.8-82.8); PLATELET COUNT 325 10^3/uL (134-434); RBC 3.21 M/mm3 (4.00-5.60); RDW 20.6 % (11.9-15.9); WHITE BLOOD COUNT 4.4 K/mm3 (4.0-10.0)
[2023-10-01 07:38] LABS: CALCIUM 7.7 mg/dL (8.5-10.1); CHLORIDE 106 mmol/L (98-107); POTASSIUM 3.5 mmol/L (3.5-5.1); SODIUM 139 mmol/L (136-145)
[2023-10-01 07:39] LABS: ALBUMIN 1.5 g/dl (3.4-5.0); ANION GAP 5 mmol/L (4-13); BLOOD UREA NITROGEN 7.7 mg/dL (7-18); CO2 28 mmol/L (21-32); GLUCOSE,RANDOM 102 mg/dL (74-106)
[2023-10-01 07:43] LABS: CREATININE 0.2 mg/dL (0.55-1.3); SGOT/AST 5 U/L (15-37)
[2023-10-01 07:44] LABS: BILIRUBIN,TOTAL 0.2 mg/dL (0.2-1); TOT PROT 4.6 g/dl (6.4-8.2)
[2023-10-01 07:45] LABS: ALK PHOS 147 U/L (45-117)
[2023-10-01 07:51] LABS: SGPT/ALT < 6 U/L (13-61)
[2023-10-01 09:29] LABS: ANISOCYTOSIS 2+; MACROCYTOSIS 0
[2023-10-01] MEDS: fentaNYL 50mcg/hr PATCH.TD72 TD SCH (10:16)
[2023-10-01] MEDS: ENOXAPARIN NA (PORCINE) 40 MG/0.4 ML DISP.SYRIN SQ SCH (10:17)
[2023-10-01] MEDS: CARBAMIDE PEROXIDE 6.5% OTIC 15 ML BOTTLE AU SCH ×2 (10:17→22:32)
[2023-10-01] MEDS: DOXYCYCLINE INJECTION 100 MG in DEXTROSE 5%-WATER 100 ML IVPB SCH ×2 (10:17→21:14)
[2023-10-01] MEDS: POVIDONE-IODINE 10% SOLN 118 ML BOTTLE TP SCH (10:17)
[2023-10-01] MEDS: PANTOPRAZOLE SODIUM 40 MG VIAL IVPUSH SCH (10:18)
[2023-10-01] MEDS: NYSTATIN 100,000 UNIT/GM TOPICAL CREAM 15 GM TUBE TP SCH ×2 (10:18→22:33)
[2023-10-01 12:22] LABS: MAGNESIUM 1.7 mg/dL (1.8-2.4)
[2023-10-01] MEDS ORDERED: FENTANYL PATCH WASTE TD PRN (12:26)
[2023-10-01] MEDS ORDERED: MAGNESIUM SULF 50% (8.12 MEQ/2 ML-1 GM VIAL) IVPB ONE (13:30)
[2023-10-01] MEDS: DAPTOMYCIN 500 MG in SODIUM CHLORIDE 50 ML IVPB SCH (14:24)
[2023-10-01] MEDS: POTASSIUM CHLORIDE 20 MEQ in AMINO ACIDS 4.25%/D5W 1,000 ML IV SCH (14:25)
[2023-10-01] MEDS ORDERED: fentaNYL 75mcg/hr PATCH.TD72 TD SCH (14:45)
[2023-10-01] MEDS: MIRTAZAPINE 15 MG TABLET (FP) PO SCH (21:13)
[2023-10-01] MEDS: FAT EMULSION/OLIVE/SOY/PHOSPHO 250 ML IV SCH (21:13)
[2023-10-01] MEDS: CHLORHEXIDINE GLUCONATE 4% CLEANSER FOR DECOLONIZATION TP SCH (22:32)
[2023-10-02] MEDS: NYSTATIN 500,000 UNITS/5 ML SUSPENSION PO SCH ×4 (00:10→17:02)
[2023-10-02] MEDS: FAT EMULSION/OLIVE/SOY/PHOSPHO 250 ML IV SCH ×2 (00:30→21:57)
[2023-10-02] MEDS: MEROPENEM 1 GM in DEXTROSE 5%-WATER 100 ML IVPB SCH ×3 (01:10→17:02)
[2023-10-02] MEDS: HYDROmorphone HCl 2 MG/ML VIAL IVPUSH PRN ×10 (01:26→21:55)
[2023-10-02] MEDS: VANCOMYCIN ORAL SOLUTION 125 MG/2.5 ML PO SCH ×3 (05:24→17:02)
[2023-10-02 08:03] LABS: BASO % 0.5 % (0-2.0); EOS % 6.6 % (0-4.5); HEMATOCRIT 26.8 % (35.4-49); HEMOGLOBIN 8.6 GM/dL (11.7-16.9); LYMPH % 29.5 % (8-40); MCH 27.5 pg (25.7-33.7); MCHC 32.1 g/dl (32.0-35.9); MEAN CELL VOLUME 85.6 fl (80-96); MEAN PLT VOLUME 7.2 fl (7.5-11.1); NEUT % 51.4 % (42.8-82.8); PLATELET COUNT 353 10^3/uL (134-434); RBC 3.13 M/mm3 (4.00-5.60); RDW 20.7 % (11.9-15.9); WHITE BLOOD COUNT 4.2 K/mm3 (4.0-10.0)
[2023-10-02 08:22] LABS: CHLORIDE 103 mmol/L (98-107); POTASSIUM 3.6 mmol/L (3.5-5.1); SODIUM 137 mmol/L (136-145)
[2023-10-02 08:26] LABS: ALBUMIN 1.5 g/dl (3.4-5.0); ANION GAP 5 mmol/L (4-13); BLOOD UREA NITROGEN 8.3 mg/dL (7-18); CO2 29 mmol/L (21-32); GLUCOSE,RANDOM 93 mg/dL (74-106)
[2023-10-02 08:29] LABS: CREATININE 0.3 mg/dL (0.55-1.3); SGOT/AST 9 U/L (15-37); SGPT/ALT < 6 U/L (13-61)
[2023-10-02 08:31] LABS: BILIRUBIN,TOTAL 0.3 mg/dL (0.2-1); TOT PROT 4.6 g/dl (6.4-8.2)
[2023-10-02 08:32] LABS: ALK PHOS 153 U/L (45-117)
[2023-10-02] MEDS: DOXYCYCLINE INJECTION 100 MG in DEXTROSE 5%-WATER 100 ML IVPB SCH ×2 (10:00→21:54)
[2023-10-02] MEDS: ENOXAPARIN NA (PORCINE) 40 MG/0.4 ML DISP.SYRIN SQ SCH (10:00)
[2023-10-02] MEDS: PANTOPRAZOLE SODIUM 40 MG VIAL IVPUSH SCH (10:00)
[2023-10-02] MEDS: POVIDONE-IODINE 10% SOLN 118 ML BOTTLE TP SCH (10:39)
[2023-10-02] MEDS: CARBAMIDE PEROXIDE 6.5% OTIC 15 ML BOTTLE AU SCH ×2 (10:39→21:56)
[2023-10-02] MEDS: NYSTATIN 100,000 UNIT/GM TOPICAL CREAM 15 GM TUBE TP SCH ×2 (10:39→21:56)
[2023-10-02] MEDS: DAPTOMYCIN 500 MG in SODIUM CHLORIDE 50 ML IVPB SCH (14:56)
[2023-10-02] MEDS: POTASSIUM CHLORIDE 20 MEQ in AMINO ACIDS 4.25%/D5W 1,000 ML IV SCH (17:19)
[2023-10-02] MEDS: CHLORHEXIDINE GLUCONATE 4% CLEANSER FOR DECOLONIZATION TP SCH (21:56)
[2023-10-02] MEDS: MIRTAZAPINE 15 MG TABLET (FP) PO SCH (21:57)
[2023-10-02] MEDS ORDERED: ONDANSETRON 4 MG/2 ML VIAL IVPUSH PRN (23:12)
[2023-10-02] MEDS ORDERED: ALBUTEROL SO4 2.5/IPRATROPIUM 0.5 INH SOL 3 ML VIAL.NEB. NEB PRN (23:12)
[2023-10-02] MEDS ORDERED: FENTANYL PATCH WASTE MC PRN (23:12)
[2023-10-03] MEDS: HYDROmorphone HCl 2 MG/ML VIAL IVPUSH PRN ×5 (01:04→21:04)
[2023-10-03] MEDS: VANCOMYCIN ORAL SOLUTION 125 MG/2.5 ML PO SCH ×4 (01:05→17:41)
[2023-10-03] MEDS: NYSTATIN 500,000 UNITS/5 ML SUSPENSION PO SCH ×4 (01:06→17:41)
[2023-10-03] MEDS: MEROPENEM 1 GM in DEXTROSE 5%-WATER 100 ML IVPB SCH ×3 (01:58→17:40)
[2023-10-03] MEDS ORDERED: HYDROmorphone HCL 2 MG TABLET PO PRN (09:04)
[2023-10-03 09:34] LABS: BASO % 0.5 % (0-2.0); EOS % 6.9 % (0-4.5); HEMATOCRIT 28.4 % (35.4-49); HEMOGLOBIN 9.2 GM/dL (11.7-16.9); LYMPH % 17.4 % (8-40); MCH 27.3 pg (25.7-33.7); MCHC 32.5 g/dl (32.0-35.9); MEAN CELL VOLUME 83.8 fl (80-96); MEAN PLT VOLUME 7.5 fl (7.5-11.1); MONO % 13.6 % (3.8-10.2); NEUT % 61.6 % (42.8-82.8); PLATELET COUNT 389 10^3/uL (134-434); RBC 3.39 M/mm3 (4.00-5.60); RDW 20.5 % (11.9-15.9); WHITE BLOOD COUNT 4.4 K/mm3 (4.0-10.0)
[2023-10-03 09:49] LABS: POTASSIUM 3.9 mmol/L (3.5-5.1)
[2023-10-03 09:53] LABS: CALCIUM 7.9 mg/dL (8.5-10.1)
[2023-10-03 09:54] LABS: MAGNESIUM 1.9 mg/dL (1.8-2.4)
[2023-10-03 09:57] LABS: ALBUMIN 1.6 g/dl (3.4-5.0)
[2023-10-03 09:58] LABS: BILIRUBIN,TOTAL 0.2 mg/dL (0.2-1); BLOOD UREA NITROGEN 9.6 mg/dL (7-18)
[2023-10-03 09:59] LABS: TOT PROT 4.7 g/dl (6.4-8.2)
[2023-10-03 10:01] LABS: CREATININE 0.3 mg/dL (0.55-1.3)
[2023-10-03] MEDS: fentaNYL 100mcg/hr PATCH.TD72 TD SCH (10:11)
[2023-10-03] MEDS: ENOXAPARIN NA (PORCINE) 40 MG/0.4 ML DISP.SYRIN SQ SCH (10:12)
[2023-10-03] MEDS: DOXYCYCLINE INJECTION 100 MG in DEXTROSE 5%-WATER 100 ML IVPB SCH ×2 (10:13→21:05)
[2023-10-03] MEDS: PANTOPRAZOLE SODIUM 40 MG VIAL IVPUSH SCH (10:13)
[2023-10-03] MEDS: CARBAMIDE PEROXIDE 6.5% OTIC 15 ML BOTTLE AU SCH ×2 (12:58→21:08)
[2023-10-03] MEDS: NYSTATIN 100,000 UNIT/GM TOPICAL CREAM 15 GM TUBE TP SCH ×2 (12:58→21:07)
[2023-10-03] MEDS: POVIDONE-IODINE 10% SOLN 118 ML BOTTLE TP SCH (12:59)
[2023-10-03] MEDS: POTASSIUM CHLORIDE 20 MEQ in AMINO ACIDS 4.25%/D5W 1,000 ML IV SCH (14:10)
[2023-10-03] MEDS: DAPTOMYCIN 500 MG in SODIUM CHLORIDE 50 ML IVPB SCH (14:15)
[2023-10-03] MEDS: MIRTAZAPINE 15 MG TABLET (FP) PO SCH (21:05)
[2023-10-03] MEDS ORDERED: CHLORHEXIDINE GLUCONATE 4% CLEANSER FOR DECOLONIZATION TP SCH (22:00)
[2023-10-03] MEDS: FAT EMULSION/OLIVE/SOY/PHOSPHO 250 ML IV SCH (22:30)
[2023-10-04] MEDS: NYSTATIN 500,000 UNITS/5 ML SUSPENSION PO SCH ×4 (00:07→17:32)
[2023-10-04] MEDS: VANCOMYCIN ORAL SOLUTION 125 MG/2.5 ML PO SCH ×4 (00:07→17:27)
[2023-10-04] MEDS: HYDROmorphone HCl 2 MG/ML VIAL IVPUSH PRN ×8 (00:08→22:11)
[2023-10-04] MEDS: MEROPENEM 1 GM in DEXTROSE 5%-WATER 100 ML IVPB SCH ×3 (01:08→17:32)
[2023-10-04 08:28] LABS: ALBUMIN 1.4 g/dl (3.4-5.0); BLOOD UREA NITROGEN 11.9 mg/dL (7-18); MAGNESIUM 1.6 mg/dL (1.8-2.4)
[2023-10-04 08:30] LABS: CALCIUM 7.7 mg/dL (8.5-10.1)
[2023-10-04 08:31] LABS: CREATININE 0.4 mg/dL (0.55-1.3)
[2023-10-04 08:32] LABS: BILIRUBIN,TOTAL 0.4 mg/dL (0.2-1); TOT PROT 4.6 g/dl (6.4-8.2)
[2023-10-04 08:48] LABS: BASO % 0.4 % (0-2.0); EOS % 7.3 % (0-4.5); HEMATOCRIT 27.3 % (35.4-49); HEMOGLOBIN 8.7 GM/dL (11.7-16.9); LYMPH % 22.1 % (8-40); MCH 27.4 pg (25.7-33.7); MCHC 31.7 g/dl (32.0-35.9); MEAN CELL VOLUME 86.4 fl (80-96); MEAN PLT VOLUME 7.3 fl (7.5-11.1); MONO % 13.2 % (3.8-10.2); PLATELET COUNT 390 10^3/uL (134-434); RBC 3.16 M/mm3 (4.00-5.60); RDW 20.4 % (11.9-15.9); WHITE BLOOD COUNT 4.5 K/mm3 (4.0-10.0)
[2023-10-04] MEDS: DOXYCYCLINE INJECTION 100 MG in DEXTROSE 5%-WATER 100 ML IVPB SCH ×2 (09:43→22:10)
[2023-10-04] MEDS: ENOXAPARIN NA (PORCINE) 40 MG/0.4 ML DISP.SYRIN SQ SCH (09:43)
[2023-10-04] MEDS: PANTOPRAZOLE SODIUM 40 MG VIAL IVPUSH SCH (09:44)
[2023-10-04] MEDS: POVIDONE-IODINE 10% SOLN 118 ML BOTTLE TP SCH (09:44)
[2023-10-04] MEDS: NYSTATIN 100,000 UNIT/GM TOPICAL CREAM 15 GM TUBE TP SCH ×2 (09:45→22:13)
[2023-10-04] MEDS: CARBAMIDE PEROXIDE 6.5% OTIC 15 ML BOTTLE AU SCH ×2 (09:46→22:13)
[2023-10-04] MEDS ORDERED: MAGNESIUM SULF 50% (8.12 MEQ/2 ML-1 GM VIAL) IVPB ONE (10:00)
[2023-10-04] MEDS: CYCLOBENZAPRINE HCL 5 MG TABLET PO SCH ×3 (11:50→22:10)
[2023-10-04] MEDS: DAPTOMYCIN 500 MG in SODIUM CHLORIDE 50 ML IVPB SCH (15:31)
[2023-10-04] MEDS: POTASSIUM CHLORIDE 20 MEQ in AMINO ACIDS 4.25%/D5W 1,000 ML IV SCH (17:27)
[2023-10-04] MEDS: MIRTAZAPINE 15 MG TABLET (FP) PO SCH (22:10)
[2023-10-04] MEDS: FAT EMULSION/OLIVE/SOY/PHOSPHO 250 ML IV SCH (22:12)
[2023-10-05] MEDS: NYSTATIN 500,000 UNITS/5 ML SUSPENSION PO SCH ×4 (00:54→17:44)
[2023-10-05] MEDS: VANCOMYCIN ORAL SOLUTION 125 MG/2.5 ML PO SCH ×4 (00:54→17:45)
[2023-10-05] MEDS: HYDROmorphone HCl 2 MG/ML VIAL IVPUSH PRN ×7 (01:16→22:23)
[2023-10-05] MEDS: MEROPENEM 1 GM in DEXTROSE 5%-WATER 100 ML IVPB SCH ×3 (01:16→17:44)
[2023-10-05] MEDS: CYCLOBENZAPRINE HCL 5 MG TABLET PO SCH ×3 (05:43→21:31)
[2023-10-05] MEDS: POVIDONE-IODINE 10% SOLN 118 ML BOTTLE TP SCH (10:36)
[2023-10-05] MEDS: CARBAMIDE PEROXIDE 6.5% OTIC 15 ML BOTTLE AU SCH ×2 (10:37→21:35)
[2023-10-05] MEDS: ENOXAPARIN NA (PORCINE) 40 MG/0.4 ML DISP.SYRIN SQ SCH (10:38)
[2023-10-05] MEDS: PANTOPRAZOLE SODIUM 40 MG VIAL IVPUSH SCH (10:41)
[2023-10-05] MEDS: NYSTATIN 100,000 UNIT/GM TOPICAL CREAM 15 GM TUBE TP SCH ×2 (10:41→21:33)
[2023-10-05] MEDS: DOXYCYCLINE INJECTION 100 MG in DEXTROSE 5%-WATER 100 ML IVPB SCH ×2 (11:37→21:35)
[2023-10-05] MEDS: DAPTOMYCIN 500 MG in SODIUM CHLORIDE 50 ML IVPB SCH (17:03)
[2023-10-05] MEDS: POTASSIUM CHLORIDE 20 MEQ in AMINO ACIDS 4.25%/D5W 1,000 ML IV SCH (17:43)
[2023-10-05] MEDS: MIRTAZAPINE 15 MG TABLET (FP) PO SCH (21:31)
[2023-10-05] MEDS: FAT EMULSION/OLIVE/SOY/PHOSPHO 250 ML IV SCH (21:32)
[2023-10-06] MEDS: VANCOMYCIN ORAL SOLUTION 125 MG/2.5 ML PO SCH ×5 (00:45→23:10)
[2023-10-06] MEDS: MEROPENEM 1 GM in DEXTROSE 5%-WATER 100 ML IVPB SCH ×3 (01:47→17:01)
[2023-10-06] MEDS: NYSTATIN 500,000 UNITS/5 ML SUSPENSION PO SCH ×5 (01:47→23:10)
[2023-10-06] MEDS: HYDROmorphone HCl 2 MG/ML VIAL IVPUSH PRN ×6 (01:50→21:36)
[2023-10-06 07:17] LABS: BASO % 0.7 % (0-2.0); EOS % 8.6 % (0-4.5); HEMATOCRIT 25.3 % (35.4-49); HEMOGLOBIN 8.1 GM/dL (11.7-16.9); MCH 27.6 pg (25.7-33.7); MEAN CELL VOLUME 86.1 fl (80-96); MEAN PLT VOLUME 7.1 fl (7.5-11.1); MONO % 11.2 % (3.8-10.2); NEUT % 59.5 % (42.8-82.8); PLATELET COUNT 455 10^3/uL (134-434); RBC 2.94 M/mm3 (4.00-5.60); RDW 19.6 % (11.9-15.9); WHITE BLOOD COUNT 4.7 K/mm3 (4.0-10.0)
[2023-10-06 07:34] LABS: CALCIUM 8.3 mg/dL (8.5-10.1)
[2023-10-06 07:35] LABS: ALBUMIN 1.5 g/dl (3.4-5.0); BLOOD UREA NITROGEN 9.1 mg/dL (7-18)
[2023-10-06 07:38] LABS: CREATININE 0.4 mg/dL (0.55-1.3)
[2023-10-06 07:39] LABS: BILIRUBIN,TOTAL 0.4 mg/dL (0.2-1); TOT PROT 4.6 g/dl (6.4-8.2)
[2023-10-06] MEDS: PANTOPRAZOLE SODIUM 40 MG VIAL IVPUSH SCH (10:05)
[2023-10-06] MEDS: ENOXAPARIN NA (PORCINE) 40 MG/0.4 ML DISP.SYRIN SQ SCH (10:09)
[2023-10-06] MEDS: CARBAMIDE PEROXIDE 6.5% OTIC 15 ML BOTTLE AU SCH ×2 (10:09→21:40)
[2023-10-06] MEDS: POVIDONE-IODINE 10% SOLN 118 ML BOTTLE TP SCH (10:11)
[2023-10-06] MEDS: NYSTATIN 100,000 UNIT/GM TOPICAL CREAM 15 GM TUBE TP SCH ×2 (10:12→21:40)
[2023-10-06] MEDS: fentaNYL 100mcg/hr PATCH.TD72 TD SCH (10:17)
[2023-10-06] MEDS: FENTANYL PATCH WASTE TD PRN (10:35)
[2023-10-06] MEDS: DOXYCYCLINE INJECTION 100 MG in DEXTROSE 5%-WATER 100 ML IVPB SCH ×2 (11:36→21:36)
[2023-10-06] MEDS: DAPTOMYCIN 500 MG in SODIUM CHLORIDE 50 ML IVPB SCH (15:12)
[2023-10-06] MEDS: POTASSIUM CHLORIDE 20 MEQ in AMINO ACIDS 4.25%/D5W 1,000 ML IV SCH (18:43)
[2023-10-06] MEDS: MIRTAZAPINE 15 MG TABLET (FP) PO SCH (21:39)
[2023-10-06] MEDS: FAT EMULSION/OLIVE/SOY/PHOSPHO 250 ML IV SCH (21:41)
[2023-10-07] MEDS: HYDROmorphone HCl 2 MG/ML VIAL IVPUSH PRN ×7 (01:02→22:29)
[2023-10-07] MEDS: MEROPENEM 1 GM in DEXTROSE 5%-WATER 100 ML IVPB SCH ×3 (01:16→17:12)
[2023-10-07] MEDS: VANCOMYCIN ORAL SOLUTION 125 MG/2.5 ML PO SCH ×3 (05:40→17:12)
[2023-10-07] MEDS: NYSTATIN 500,000 UNITS/5 ML SUSPENSION PO SCH ×3 (05:40→17:12)
[2023-10-07] MEDS: ENOXAPARIN NA (PORCINE) 40 MG/0.4 ML DISP.SYRIN SQ SCH (09:00)
[2023-10-07] MEDS: NYSTATIN 100,000 UNIT/GM TOPICAL CREAM 15 GM TUBE TP SCH ×2 (09:01→22:25)
[2023-10-07] MEDS: CARBAMIDE PEROXIDE 6.5% OTIC 15 ML BOTTLE AU SCH ×2 (09:01→22:25)
[2023-10-07] MEDS: PANTOPRAZOLE SODIUM 40 MG VIAL IVPUSH SCH (09:01)
[2023-10-07] MEDS: DOXYCYCLINE INJECTION 100 MG in DEXTROSE 5%-WATER 100 ML IVPB SCH ×2 (09:47→22:25)
[2023-10-07 10:02] LABS: BASO % 0.5 % (0-2.0); EOS % 7.3 % (0-4.5); HEMATOCRIT 27.9 % (35.4-49); HEMOGLOBIN 8.5 GM/dL (11.7-16.9); LYMPH % 13.8 % (8-40); MCH 26.1 pg (25.7-33.7); MCHC 30.5 g/dl (32.0-35.9); MEAN CELL VOLUME 85.7 fl (80-96); MEAN PLT VOLUME 6.9 fl (7.5-11.1); MONO % 10.9 % (3.8-10.2); NEUT % 67.5 % (42.8-82.8); PLATELET COUNT 484 10^3/uL (134-434); RBC 3.26 M/mm3 (4.00-5.60); RDW 19.6 % (11.9-15.9); WHITE BLOOD COUNT 6.8 K/mm3 (4.0-10.0)
[2023-10-07 10:40] LABS: POTASSIUM 3.9 mmol/L (3.5-5.1)
[2023-10-07 11:42] LABS: ALBUMIN 1.5 g/dl (3.4-5.0)
[2023-10-07 11:43] LABS: BLOOD UREA NITROGEN 9.3 mg/dL (7-18); MAGNESIUM 1.6 mg/dL (1.8-2.4)
[2023-10-07 11:45] LABS: CREATININE 0.4 mg/dL (0.55-1.3)
[2023-10-07 11:47] LABS: BILIRUBIN,TOTAL 0.3 mg/dL (0.2-1); TOT PROT 4.8 g/dl (6.4-8.2)
[2023-10-07] MEDS ORDERED: MAGNESIUM SULF 50% (8.12 MEQ/2 ML-1 GM VIAL) IVPB ONE (13:15)
[2023-10-07] MEDS: POVIDONE-IODINE 10% SOLN 118 ML BOTTLE TP SCH (15:41)
[2023-10-07] MEDS: DAPTOMYCIN 500 MG in SODIUM CHLORIDE 50 ML IVPB SCH (16:03)
[2023-10-07] MEDS: AMINO ACIDS/PROTEIN HYDROLYS 30 ML LIQUID.PKT PO SCH (17:17)
[2023-10-07] MEDS: MIRTAZAPINE 15 MG TABLET (FP) PO SCH (22:25)
[2023-10-07] MEDS: POTASSIUM CHLORIDE 20 MEQ in AMINO ACIDS 4.25%/D5W 1,000 ML IV SCH (22:27)
[2023-10-08] MEDS: NYSTATIN 500,000 UNITS/5 ML SUSPENSION PO SCH ×5 (00:09→23:32)
[2023-10-08] MEDS: VANCOMYCIN ORAL SOLUTION 125 MG/2.5 ML PO SCH ×5 (00:09→23:32)
[2023-10-08] MEDS: MEROPENEM 1 GM in DEXTROSE 5%-WATER 100 ML IVPB SCH ×3 (02:09→17:25)
[2023-10-08] MEDS: HYDROmorphone HCl 2 MG/ML VIAL IVPUSH PRN ×7 (02:30→23:32)
[2023-10-08] MEDS: AMINO ACIDS/PROTEIN HYDROLYS 30 ML LIQUID.PKT PO SCH ×2 (09:10→16:34)
[2023-10-08] MEDS: CARBAMIDE PEROXIDE 6.5% OTIC 15 ML BOTTLE AU SCH ×2 (09:10→21:31)
[2023-10-08 09:48] LABS: EOS % 9.6 % (0-4.5); HEMATOCRIT 25.3 % (35.4-49); HEMOGLOBIN 8.2 GM/dL (11.7-16.9); LYMPH % 19.3 % (8-40); MCH 27.1 pg (25.7-33.7); MCHC 32.3 g/dl (32.0-35.9); MEAN PLT VOLUME 6.9 fl (7.5-11.1); MONO % 12.1 % (3.8-10.2); PLATELET COUNT 423 10^3/uL (134-434); RBC 3.01 M/mm3 (4.00-5.60); RDW 19.8 % (11.9-15.9)
[2023-10-08 09:51] LABS: POTASSIUM 3.9 mmol/L (3.5-5.1)
[2023-10-08] MEDS: ENOXAPARIN NA (PORCINE) 40 MG/0.4 ML DISP.SYRIN SQ SCH (09:58)
[2023-10-08] MEDS: NYSTATIN 100,000 UNIT/GM TOPICAL CREAM 15 GM TUBE TP SCH ×2 (09:59→21:31)
[2023-10-08] MEDS: PANTOPRAZOLE SODIUM 40 MG VIAL IVPUSH SCH (09:59)
[2023-10-08 10:01] LABS: CALCIUM 7.8 mg/dL (8.5-10.1)
[2023-10-08 10:02] LABS: ALBUMIN 1.5 g/dl (3.4-5.0); BLOOD UREA NITROGEN 9.6 mg/dL (7-18); MAGNESIUM 1.9 mg/dL (1.8-2.4)
[2023-10-08 10:04] LABS: CREATININE 0.4 mg/dL (0.55-1.3)
[2023-10-08 10:06] LABS: BILIRUBIN,TOTAL 0.3 mg/dL (0.2-1); TOT PROT 4.7 g/dl (6.4-8.2)
[2023-10-08] MEDS: DOXYCYCLINE INJECTION 100 MG in DEXTROSE 5%-WATER 100 ML IVPB SCH ×2 (10:36→21:30)
[2023-10-08] MEDS: DAPTOMYCIN 500 MG in SODIUM CHLORIDE 50 ML IVPB SCH (16:07)
[2023-10-08] MEDS: POVIDONE-IODINE 10% SOLN 118 ML BOTTLE TP SCH (16:07)
[2023-10-08] MEDS: MIRTAZAPINE 15 MG TABLET (FP) PO SCH (21:30)
[2023-10-09] MEDS: HYDROmorphone HCl 2 MG/ML VIAL IVPUSH PRN ×3 (02:09→08:50)
[2023-10-09] MEDS: MEROPENEM 1 GM in DEXTROSE 5%-WATER 100 ML IVPB SCH ×3 (02:09→17:20)
[2023-10-09] MEDS: NYSTATIN 500,000 UNITS/5 ML SUSPENSION PO SCH ×4 (05:45→23:40)
[2023-10-09] MEDS: VANCOMYCIN ORAL SOLUTION 125 MG/2.5 ML PO SCH ×4 (05:47→23:40)
[2023-10-09] MEDS: AMINO ACIDS/PROTEIN HYDROLYS 30 ML LIQUID.PKT PO SCH ×2 (08:58→16:58)
[2023-10-09 09:16] LABS: BASO % 0.9 % (0-2.0); EOS % 11.6 % (0-4.5); HEMATOCRIT 25.2 % (35.4-49); HEMOGLOBIN 7.8 GM/dL (11.7-16.9); LYMPH % 16.6 % (8-40); MCH 26.5 pg (25.7-33.7); MCHC 31.1 g/dl (32.0-35.9); MEAN CELL VOLUME 85.3 fl (80-96); MEAN PLT VOLUME 6.9 fl (7.5-11.1); MONO % 12.4 % (3.8-10.2); NEUT % 58.5 % (42.8-82.8); PLATELET COUNT 411 10^3/uL (134-434); RBC 2.96 M/mm3 (4.00-5.60); RDW 19.3 % (11.9-15.9)
[2023-10-09 10:22] LABS: ALBUMIN 1.4 g/dl (3.4-5.0); BLOOD UREA NITROGEN 8.1 mg/dL (7-18); CALCIUM 7.8 mg/dL (8.5-10.1)
[2023-10-09 10:25] LABS: CREATININE 0.4 mg/dL (0.55-1.3)
[2023-10-09] MEDS: DOXYCYCLINE INJECTION 100 MG in DEXTROSE 5%-WATER 100 ML IVPB SCH ×2 (10:26→21:43)
[2023-10-09] MEDS: PANTOPRAZOLE SODIUM 40 MG VIAL IVPUSH SCH (10:26)
[2023-10-09 10:27] LABS: BILIRUBIN,TOTAL 0.3 mg/dL (0.2-1); TOT PROT 4.6 g/dl (6.4-8.2)
[2023-10-09] MEDS: ENOXAPARIN NA (PORCINE) 40 MG/0.4 ML DISP.SYRIN SQ SCH (10:27)
[2023-10-09] MEDS: NYSTATIN 100,000 UNIT/GM TOPICAL CREAM 15 GM TUBE TP SCH ×2 (10:27→21:44)
[2023-10-09] MEDS: fentaNYL 100mcg/hr PATCH.TD72 TD SCH (10:28)
[2023-10-09] MEDS: POVIDONE-IODINE 10% SOLN 118 ML BOTTLE TP SCH (10:28)
[2023-10-09] MEDS: FENTANYL PATCH WASTE TD PRN (10:39)
[2023-10-09] MEDS: CARBAMIDE PEROXIDE 6.5% OTIC 15 ML BOTTLE AU SCH ×2 (10:40→21:45)
[2023-10-09] MEDS: MIRTAZAPINE 15 MG TABLET (FP) PO SCH (21:43)
[2023-10-10] MEDS: HYDROmorphone HCl 2 MG/ML VIAL IVPUSH PRN ×6 (02:46→22:14)
[2023-10-10] MEDS: MEROPENEM 1 GM in DEXTROSE 5%-WATER 100 ML IVPB SCH ×3 (02:47→17:00)
[2023-10-10] MEDS: NYSTATIN 500,000 UNITS/5 ML SUSPENSION PO SCH ×4 (06:10→23:58)
[2023-10-10] MEDS: VANCOMYCIN ORAL SOLUTION 125 MG/2.5 ML PO SCH ×4 (06:10→23:58)
[2023-10-10] MEDS: AMINO ACIDS/PROTEIN HYDROLYS 30 ML LIQUID.PKT PO SCH ×2 (08:52→16:35)
[2023-10-10] MEDS: NYSTATIN 100,000 UNIT/GM TOPICAL CREAM 15 GM TUBE TP SCH ×2 (09:04→22:12)
[2023-10-10] MEDS: ENOXAPARIN NA (PORCINE) 40 MG/0.4 ML DISP.SYRIN SQ SCH (09:05)
[2023-10-10] MEDS: PANTOPRAZOLE SODIUM 40 MG VIAL IVPUSH SCH (09:05)
[2023-10-10] MEDS: CARBAMIDE PEROXIDE 6.5% OTIC 15 ML BOTTLE AU SCH ×2 (09:05→22:12)
[2023-10-10] MEDS: DOXYCYCLINE INJECTION 100 MG in DEXTROSE 5%-WATER 100 ML IVPB SCH ×2 (09:39→22:15)
[2023-10-10] MEDS: POVIDONE-IODINE 10% SOLN 118 ML BOTTLE TP SCH (11:16)
[2023-10-10] MEDS: MIRTAZAPINE 15 MG TABLET (FP) PO SCH (22:13)
[2023-10-11] MEDS: MEROPENEM 1 GM in DEXTROSE 5%-WATER 100 ML IVPB SCH ×3 (02:55→17:02)
[2023-10-11] MEDS: HYDROmorphone HCl 2 MG/ML VIAL IVPUSH PRN ×6 (02:59→21:43)
[2023-10-11] MEDS: NYSTATIN 500,000 UNITS/5 ML SUSPENSION PO SCH ×3 (05:56→17:02)
[2023-10-11] MEDS: VANCOMYCIN ORAL SOLUTION 125 MG/2.5 ML PO SCH ×3 (05:56→17:01)
[2023-10-11] MEDS: AMINO ACIDS/PROTEIN HYDROLYS 30 ML LIQUID.PKT PO SCH ×2 (08:17→17:03)
[2023-10-11] MEDS: NYSTATIN 100,000 UNIT/GM TOPICAL CREAM 15 GM TUBE TP SCH ×2 (09:17→21:55)
[2023-10-11] MEDS: CARBAMIDE PEROXIDE 6.5% OTIC 15 ML BOTTLE AU SCH ×2 (09:17→21:56)
[2023-10-11] MEDS: ENOXAPARIN NA (PORCINE) 40 MG/0.4 ML DISP.SYRIN SQ SCH (09:18)
[2023-10-11] MEDS: PANTOPRAZOLE SODIUM 40 MG VIAL IVPUSH SCH (09:18)
[2023-10-11] MEDS: DOXYCYCLINE INJECTION 100 MG in DEXTROSE 5%-WATER 100 ML IVPB SCH ×2 (10:00→21:43)
[2023-10-11] MEDS: POVIDONE-IODINE 10% SOLN 118 ML BOTTLE TP SCH (15:03)
[2023-10-11] MEDS: MIRTAZAPINE 15 MG TABLET (FP) PO SCH (21:42)
[2023-10-12] MEDS: NYSTATIN 500,000 UNITS/5 ML SUSPENSION PO SCH ×4 (00:32→17:49)
[2023-10-12] MEDS: VANCOMYCIN ORAL SOLUTION 125 MG/2.5 ML PO SCH ×4 (00:32→17:48)
[2023-10-12] MEDS: HYDROmorphone HCl 2 MG/ML VIAL IVPUSH PRN ×8 (00:39→22:17)
[2023-10-12] MEDS: MEROPENEM 1 GM in DEXTROSE 5%-WATER 100 ML IVPB SCH ×3 (03:48→17:49)
[2023-10-12] MEDS: AMINO ACIDS/PROTEIN HYDROLYS 30 ML LIQUID.PKT PO SCH ×2 (08:33→17:48)
[2023-10-12 09:22] LABS: BASO % 0.8 % (0-2.0); EOS % 8.2 % (0-4.5); HEMATOCRIT 23.8 % (35.4-49); HEMOGLOBIN 7.5 GM/dL (11.7-16.9); LYMPH % 19.5 % (8-40); MCH 26.5 pg (25.7-33.7); MCHC 31.4 g/dl (32.0-35.9); MEAN CELL VOLUME 84.4 fl (80-96); MEAN PLT VOLUME 6.7 fl (7.5-11.1); NEUT % 56.5 % (42.8-82.8); PLATELET COUNT 341 10^3/uL (134-434); RBC 2.82 M/mm3 (4.00-5.60); RDW 18.2 % (11.9-15.9); WHITE BLOOD COUNT 3.5 K/mm3 (4.0-10.0)
[2023-10-12 09:41] LABS: POTASSIUM 3.8 mmol/L (3.5-5.1)
[2023-10-12 09:50] LABS: CALCIUM 7.8 mg/dL (8.5-10.1)
[2023-10-12 09:51] LABS: ALBUMIN 1.4 g/dl (3.4-5.0); BLOOD UREA NITROGEN 5.4 mg/dL (7-18)
[2023-10-12 09:54] LABS: CREATININE 0.3 mg/dL (0.55-1.3)
[2023-10-12 09:55] LABS: BILIRUBIN,TOTAL 0.3 mg/dL (0.2-1); TOT PROT 4.5 g/dl (6.4-8.2)
[2023-10-12] MEDS: DOXYCYCLINE INJECTION 100 MG in DEXTROSE 5%-WATER 100 ML IVPB SCH ×2 (09:58→22:16)
[2023-10-12] MEDS: ENOXAPARIN NA (PORCINE) 40 MG/0.4 ML DISP.SYRIN SQ SCH (09:58)
[2023-10-12] MEDS: PANTOPRAZOLE SODIUM 40 MG VIAL IVPUSH SCH (09:59)
[2023-10-12] MEDS: NYSTATIN 100,000 UNIT/GM TOPICAL CREAM 15 GM TUBE TP SCH ×2 (09:59→22:17)
[2023-10-12] MEDS: POVIDONE-IODINE 10% SOLN 118 ML BOTTLE TP SCH (10:00)
[2023-10-12] MEDS: CARBAMIDE PEROXIDE 6.5% OTIC 15 ML BOTTLE AU SCH ×2 (10:00→22:17)
[2023-10-12] MEDS ORDERED: DAPTOMYCIN 500 MG in SODIUM CHLORIDE 50 ML IVPB SCH (11:00)
[2023-10-12] MEDS: MIRTAZAPINE 15 MG TABLET (FP) PO SCH (22:16)
[2023-10-13] MEDS: MEROPENEM 1 GM in DEXTROSE 5%-WATER 100 ML IVPB SCH ×3 (00:58→17:50)
[2023-10-13] MEDS: VANCOMYCIN ORAL SOLUTION 125 MG/2.5 ML PO SCH ×4 (00:58→17:50)
[2023-10-13] MEDS: NYSTATIN 500,000 UNITS/5 ML SUSPENSION PO SCH ×4 (00:58→17:50)
[2023-10-13] MEDS: HYDROmorphone HCl 2 MG/ML VIAL IVPUSH PRN ×6 (00:59→19:02)
[2023-10-13 08:29] LABS: BASO % 0.9 % (0-2.0); EOS % 8.9 % (0-4.5); HEMOGLOBIN 7.9 GM/dL (11.7-16.9); LYMPH % 24.1 % (8-40); MCH 26.6 pg (25.7-33.7); MCHC 31.4 g/dl (32.0-35.9); MEAN CELL VOLUME 84.6 fl (80-96); MEAN PLT VOLUME 6.9 fl (7.5-11.1); MONO % 10.6 % (3.8-10.2); NEUT % 55.5 % (42.8-82.8); PLATELET COUNT 370 10^3/uL (134-434); RBC 2.96 M/mm3 (4.00-5.60); RDW 17.9 % (11.9-15.9); WHITE BLOOD COUNT 3.8 K/mm3 (4.0-10.0)
[2023-10-13 08:42] LABS: POTASSIUM 4.1 mmol/L (3.5-5.1)
[2023-10-13 08:49] LABS: CALCIUM 7.9 mg/dL (8.5-10.1)
[2023-10-13 08:50] LABS: ALBUMIN 1.4 g/dl (3.4-5.0)
[2023-10-13] MEDS: AMINO ACIDS/PROTEIN HYDROLYS 30 ML LIQUID.PKT PO SCH ×2 (08:50→17:49)
[2023-10-13 08:54] LABS: BILIRUBIN,TOTAL 0.2 mg/dL (0.2-1); TOT PROT 4.5 g/dl (6.4-8.2)
[2023-10-13 08:56] LABS: CREATININE 0.4 mg/dL (0.55-1.3)
[2023-10-13] MEDS: ENOXAPARIN NA (PORCINE) 40 MG/0.4 ML DISP.SYRIN SQ SCH (09:52)
[2023-10-13] MEDS: PANTOPRAZOLE SODIUM 40 MG VIAL IVPUSH SCH (09:52)
[2023-10-13] MEDS: CARBAMIDE PEROXIDE 6.5% OTIC 15 ML BOTTLE AU SCH (09:52)
[2023-10-13] MEDS: DOXYCYCLINE INJECTION 100 MG in DEXTROSE 5%-WATER 100 ML IVPB SCH (09:52)
[2023-10-13] MEDS: NYSTATIN 100,000 UNIT/GM TOPICAL CREAM 15 GM TUBE TP SCH (09:53)
[2023-10-13] MEDS: POVIDONE-IODINE 10% SOLN 118 ML BOTTLE TP SCH (09:53)
[2023-10-13] MEDS ORDERED: DAPTOMYCIN 500 MG in SODIUM CHLORIDE 50 ML IVPB SCH (12:00)
[2023-10-13 13:55] VITALS: RESP 20; TEMP 98
[2023-10-13 18:46] VITALS: BP 105/62; PULSE 112
== END 2023-10-13 19:45 | DRG 710 ==
LOC: JER 11:56 → JERBED 20:04 → J6S 23:05 → J8W 09-03 14:34 → OBSVTOIN 09-04 14:38 → J4S 09-12 07:21 → J7W 09-21 10:00 → JICU 09-24 12:15 → J7W 10-02 22:28
PROVIDERS: ADMIT Internal Medicine; ATTEND Nurse Practitioner Acute Care
PROC: 30233N1 Transfusion of Nonautologous Red Blood Cells into Peripheral Vein, Percutaneous Approach (ICD-10-PCS; 2023-09-04)
PROC: XW033E5 Introduction of Remdesivir Anti-infective into Peripheral Vein, Percutaneous Approach, New Technology Group 5 (ICD-10-PCS; 2023-09-06)
PROC: 05HM33Z Insertion of Infusion Device into Right Internal Jugular Vein, Percutaneous Approach (ICD-10-PCS; 2023-09-23)
PROC: B543ZZA Ultrasonography of Right Jugular Veins, Guidance (ICD-10-PCS; 2023-09-23)
PROC: 0D1E0Z4 Bypass Large Intestine to Cutaneous, Open Approach (ICD-10-PCS; 2023-09-25)
PROC: 5A1945Z Respiratory Ventilation, 24-96 Consecutive Hours (ICD-10-PCS; 2023-09-25)
PROC: 0BH17EZ Insertion of Endotracheal Airway into Trachea, Via Natural or Artificial Opening (ICD-10-PCS; 2023-09-25)
PROC: 0DBE0ZZ Excision of Large Intestine, Open Approach (ICD-10-PCS; principal; 2023-09-25 15:30)
PROC: 0W0F0ZZ Alteration of Abdominal Wall, Open Approach (ICD-10-PCS; 2023-09-25 15:30)
DX: A41.81 Sepsis due to Enterococcus (principal); E43 Unspecified severe protein-calorie malnutrition; J12.82 Pneumonia due to coronavirus disease 2019; L89.154 Pressure ulcer of sacral region, stage 4; A04.72 Enterocolitis due to Clostridium difficile, not specified as recurrent; A04.8 Other specified bacterial intestinal infections; E87.20 Acidosis, unspecified; R64 Cachexia; U07.1 COVID-19; E83.39 Other disorders of phosphorus metabolism; E87.1 Hypo-osmolality and hyponatremia; F11.20 Opioid dependence, uncomplicated; K56.0 Paralytic ileus; B96.20 Unspecified Escherichia coli [E. coli] as the cause of diseases classified elsewhere; D47.3 Essential (hemorrhagic) thrombocythemia; D50.9 Iron deficiency anemia, unspecified; I10 Essential (primary) hypertension; K63.4 Enteroptosis; M86.9 Osteomyelitis, unspecified; R05.3 Chronic cough; R74.01 Elevation of levels of liver transaminase levels; T17.998A Other foreign object in respiratory tract, part unspecified causing other injury, initial encounter; Y83.3 Surgical operation with formation of external stoma as the cause of abnormal reaction of the patient, or of later complication, without mention of misadventure at the time of the procedure; Z68.22 Body mass index [BMI] 22.0-22.9, adult; Z93.3 Colostomy status; I46.9 Cardiac arrest, cause unspecified; Y93.9 Activity, unspecified; Y92.89 Other specified places as the place of occurrence of the external cause; Y99.9 Unspecified external cause status; K43.5 Parastomal hernia without obstruction or gangrene; Z68.1 Body mass index [BMI] 19.9 or less, adult; G82.20 Paraplegia, unspecified; E87.6 Hypokalemia
CPT/HCPCS: 0241U-QW; 31500; 36415; 36430; 36558; 36600; 71045-TC-FY; 72193-TC; 73610-TC-LT-FY; 73630-TC-LT; 74018-TC-FY; 74177-TC; 77001-TC-FY; 80048; 80053; 80307; 82272; 82550; 82728; 82803; 83010; 83540; 83550; 83605; 83735; 84100; 84484; 85025; 85027; 85045; 85610; 85730; 86140; 86850; 86900; 86901; 86922; 87040; 87077; 87186; 87324; 87449; 87635; 88307-TC; 93005; 93010; 93306-TC; 94002; 94010; 97161-GP; 99285-25; C1751; E0186; G0378; G0480; J0248; J0878; P9058; Q9967